=== PATIENT | female | born 1965 | race Caucasian/White ===

== ENCOUNTER 2022-06-04 12:33 | Observation (INO) | payer BC, SELFPAY ==
[2022-06-04] VITALS (29 sets, daily range): BP systolic 102–146; BP diastolic 61–75; PULSE 82–176; RESP 15–25; TEMP 36.2–36.7; O2SAT 95–100; BMI 37.4
--- NOTE | ~2022-06-04 | XR_ITS ---
EXAMINATION: XR ribs LT 2V w CXR 2V DATE: 06/04/2022 14:42 INDICATION: Left rib pain post fall TECHNIQUE: PA and lateral views of the chest and 3 views of the left ribs were obtained. COMPARISON: CT abdomen dated 06/04/2022 FINDINGS: Mild displacement of an age-indeterminate anterior left third rib fracture. No other rib fractures id entified. No focal airspace opacities, pulmonary edema, pleural effusion or pneumothorax. Heart size is normal. Mild lower thoracic levocurvature with mild spondylosis. Excreted contrast in the left kwadwo al collecting system and proximal left ureter from the earlier contrast-enhanced CT. IMPRESSION: 1. Age-indeterminate mildly displaced anterior left third rib fracture. Reviewed, dictated and finalized at location A.
--- NOTE | ~2022-06-04 | US_ITS ---
EXAMINATION: US carotid duplex BI DATE: 06/05/2022 09:19 INDICATION: Syncope. TECHNIQUE: Grayscale, color Doppler, and pulsed Doppler images of the cervical carotid arteries were obtained. The degree of vessel stenosis is placed in one of the following categories: normal, <50%, 5 0-69%, >=70% but less than near-occlusion, near-occlusion, or total occlusion. Note that percent sten osis relative to normal distal artery lumen diameter is indirectly measured from velocity measurement s as described by Alexsander, et al. Radiology 2003; 229:340-346. COMPARISON: None. FINDINGS: RIGHT: The right common carotid artery (CCA) peak systolic velocity (PSV) is 122 cm/s. The right internal ca rotid artery (ICA) PSV is 85 cm/s. The right ICA end-diastolic velocity (EDV) is 37 cm/s. The right I CA/CCA PSV ratio is 0.7. Grayscale and color Doppler images yield an estimate of <50% diameter reduct ion from plaque in the ICA. There is antegrade flow in the right vertebral artery. LEFT: The left CCA PSV is 97 cm/s. The left ICA PSV is 75 cm/s. The left ICA EDV is 31 cm/s. The left ICA/C CA PSV ratio is 0.8. Grayscale and color Doppler images yield an estimate of <50% diameter reduction from plaque in the ICA. There is antegrade flow in the left vertebral artery. IMPRESSION: 1. <50% stenosis in the right internal carotid artery. 2. <50% stenosis in the left internal carotid artery. Reviewed, dictated and finalized at location A.
--- NOTE | ~2022-06-04 | CT_ITS ---
EXAMINATION: CT abdomen pelvis w con INDICATION: Diffuse lower abdominal pain TECHNIQUE: Computed tomographic images of the abdomen and pelvis were obtained after the administrati on of 100 cc of Omnipaque 350 intravenous contrast. The dose-length product (DLP) was 1104.46 mGy-cm. Automated exposure control and iterative reconstruction technique were employed. COMPARISON: None available FINDINGS: Minimal dependent atelectasis is present in the lung bases. The heart size is normal. Stone s are present in the nondistended gallbladder. The liver, spleen, pancreas, and adrenal glands are no rmal. There is mildly decreased enhancement of the right kidney compared to the left. There is also m ild urothelial thickening and enhancement of the right ureter. Colonic diverticulosis is present with out evidence of diverticulitis. No pathologically enlarged abdominal or pelvic lymph nodes are identi fied. No free intraperitoneal gas or evidence of bowel obstruction. There is a fat-containing umbilic al hernia. IMPRESSION: 1. Mildly decreased enhancement of the right kidney and mild urothelial thickening and enhancement of the right ureter suggestive of urinary tract infection possible mild right pyelonephritis. 2. Cholelithiasis without evidence of cholecystitis. Reviewed, dictated and finalized at location L. IMPRESSION: 1. Mildly decreased enhancement of the right kidney and mild urothelial thicken ing and enhancement of the right ureter suggestive of urinary tract infection p ossible mild right pyelonephritis. 2. Cholelithiasis without evidence of cholecystitis.
--- NOTE | ~2022-06-04 | CT_ITS ---
EXAMINATION: CT brain wo con DATE: 06/04/2022 14:26 INDICATION: Syncope. TECHNIQUE: Computed tomography (CT) of the head was performed without intravenous contrast. The mA wa s adjusted according to patient size. Iterative reconstruction technique was employed. The dose-lengt h product was 605.33 mGy-cm. COMPARISON: None FINDINGS: There is no intracranial hemorrhage, acute infarction, or abnormal intracranial mass lesion . The ventricles are normal in size. The orbits are normal. There is mild mucosal thickening in the p aranasal sinuses. The mastoid air cells are normal. IMPRESSION: 1. Normal brain. Reviewed, dictated and finalized at location A. IMPRESSION: 1. Normal brain.
[2022-06-04 13:04] LABS: Basophils Percent Auto 0.2 % (0.2-1.2); Eosinophils Absolute Auto 0.1 K/mm3 (0-0.3); Eosinophils Percent Auto 0.4 % (0-4.4); Hematocrit 37.6 % (37.0-47.0); Hemoglobin 12.4 g/dL (12.0-15.0); Immature Granulocyte Absolute 0.17 K/mm3 (0.00-0.031); Immature Granulocyte Percent A 0.9 % (0-0.5); Lymphocytes Absolute Auto 1.16 K/mm3 (0.9-3.2); Lymphocytes Percent Auto 6.5 % (18.3-44.2); Mean Corpuscular Hemoglobin 30.2 pg (26-34); Mean Corpuscular Volume 91.5 fl (80-100); Mean Platelet Volume 11.1 fl (7.4-10.4); Monocytes Absolute Auto 1.4 K/mm3 (0.1-0.6); Monocytes Percent Auto 7.9 % (2.6-8.5); Neutrophils Absolute Auto 15.1 K/mm3 (1.3-6.7); Neutrophils Percent Auto 84.1 % (45.5-73.1); Platelet Count Result 169 k/mm3 (150-375); Red Blood Count 4.11 M/mm3 (4.2-5.4); Red Cell Distribution Width 14.6 % (11.5-14.5); White Blood Count 17.9 K/mm3 (4.5-10.0)
[2022-06-04 13:14] LABS: Alanine Aminotransferase 27 U/L (6-35); Albumin Level 4.1 g/dL (3.5-5.1); Alkaline Phosphatase 40 U/L (38-126); Anion Gap 8 mmol/L (8-16); Aspartate Amino Transferase 29 U/L (14-36); Bilirubin,Total 1.4 mg/dL (0.2-1.3); Blood Urea Nitrogen 18 mg/dL (7-17); Carbon Dioxide 27 mmol/L (22-30); Chloride 99 mmol/L (98-107); Estimated CRCL calculation 61 ml/min; Estimated Glomerular Filt Rate > 60; Glucose 104 mg/dL (65-110); Potassium 3.3 mmol/L (3.4-5.0); Sodium 134 mmol/L (137-145)
[2022-06-04 13:54] LABS: Appearance Urine Clear (Clear); Bacteria Urine None Seen /hpf; Bilirubin Urine Negative (Negative); Blood Urine 1+ (Negative); Color Urine Yellow (Yellow); Glucose Urine UA Negative (Negative); Ketones Urine Trace mg/dL (Negative); Leukocyte Esterase Ur 1+ LEU/UL (Negative); Need Manual Microscopic Reviewed; Nitrate Urine Negative (Negative); Non Pathogenic Casts 0-2; Protein Urine Negative (Negative); RBC Urine 0-2 /hpf (0-2); Specific Grav Ur 1.005 (1.001-1.035); Squamous Epithelial Cell Urine Occasional /hpf (Few); Urobilinogen Urine 0.2 mg/dL (<2.0); pH Urine 6.5 (5.0-9.0)
[2022-06-04 13:55] LABS: Add Urine Microscopic? YES
--- NOTE | 2022-06-04 13:59 | ED.FALL ---
HPI - Fall General Chief Complaint: Fall Stated Complaint: Left Rib pain Time Seen by Provider: 06/04/22 13:28 History of Present Illness HPI Narrative: Patient is a 56-year-old female here for evaluation after syncopal episode yesterday. Patient states that she has felt unwell for 2 days, with fevers, diffuse abdominal pain, urinary symptoms and fatigue. She saw her PCP yesterday who diagnosed with her a UTI, she has been taking her antibiotics but states that she has gotten worse. Yesterday she states that she felt unwell and passed out without warning, woke up on the floor with a headache. She contacted her primary care doctor who recommended ED evaluation. She denies any diarrhea, constipation. Has not taken any medicine for pain. Related Data Home Medications Medication Instructions Recorded Confirmed albuterol sulfate 90 mcg/actuation 1 puff inhalation Q4H PRN 01/11/22 06/03/22 aerosol inhaler (Ventolin HFA) cholecalciferol (vitamin D3) 50 4,000 unit PO DAILY 01/11/22 06/03/22 mcg (2,000 unit) capsule cyanocobalamin (vitamin B-12) 2,000 mcg PO DAILY 01/11/22 06/03/22 2,000 mcg tablet ferrous sulfate 142 mg (45 mg 142 mg PO ONCE 01/11/22 06/03/22 iron) tablet,extended release (Slow Fe) loratadine 10 mg tablet (Claritin) 10 mg PO DAILY 01/11/22 06/03/22 omeprazole magnesium 20 mg 20 mg PO DAILY 01/11/22 06/03/22 tablet,delayed release (Prilosec OTC) vitamin E mixed 400 unit capsule unit PO 01/11/22 06/03/22 Allergies Allergy/AdvReac Type Severity Reaction Status Date / Time cephalexin [From Keflex] AdvReac Unknown Gastrointestinal Verified 06/04/22 13:28 Upset sunflower products AdvReac Severe Loss of Uncoded 06/03/22 14:50 Consciousness Review of Systems Review of Systems: Gen.: Reports syncope. Denies fevers or chills Eyes: Denies eye pain or visual change ENT: Denies congestion Respiratory: Denies shortness of breath or cough CV: Denies chest pain or palpitations GI: Reports abdominal pain. Denies abdominal pain nausea, emesis or diarrhea : reports urinary symptoms. Musculoskeletal: Denies back pain or muscle pain Neuro: Denies numbness, tingling, weakness or focal weakness Skin: Denies rash Except as documented, all other systems reviewed and negative PMFSH Past Medical History Medical History Anemia Iron deficiency Asthma Carpal tunnel syndrome of left wrist Carpal tunnel syndrome of right wrist Endometrial cyst of ovary HTN (hypertension) Surgical History Surgical History H/O right knee surgery S/P foot surgery, left Social History Social History ) Smoking status: Never smoker Alcohol intake: current Alcohol use details: Holidays Substance use: never Living arrangements: with family Occupation/Education: other Additional occupation/education comments: House Gender identity (if verbalized by the patient): Female Exam Narrative: APPEARANCE: Well appearing, no pain in distress, well-nourished. Head: There is a hematoma palpated to the left posterior scalp. EYES: PERRLA/EOMI, conjunctivae clear NOSE: No nasal drainage EARS: External ear normal in appearance THROAT: Oropharynx is clear. Mucous membranes are moist. NECK: There is no tenderness to palpation along the midline of the C-spine. Supple. No adenopathy, no masses. RESPIRATORY: Airway patent, respirations nonlabored. Clear to auscultation bilaterally, no rales, rhonchi, wheezing. CARDIOVASCULAR: Regular rate and rhythm without murmurs, rubs, or gallops. ABDOMINAL: Mild right CVAT. RLQ abdominal tenderness. Normoactive bowel sounds. Soft, nondistended. No rebound tenderness or guarding. MUSCULOSKELETAL: There is tenderness to palpation in the left axillae along the posterior ribs. Non-pitting edema to BLE
[2022-06-04] MEDS: SODIUM CHLORIDE 0.9% IV 1,000 ML 999 ML IV CONT (14:02)
[2022-06-04] MEDS: KETOROLAC 15 MG/ML VIAL (*BKC) IV PUSH (14:03)
[2022-06-04 14:28] LABS: Lactic Acid Reflex 0.8 mmol/L (0.7-2.0)
[2022-06-04 14:45] LABS: Troponin I < 0.012 ng/mL (0.000-0.034)
[2022-06-04] MEDS: LIDOCAINE 5% PATCH 1 PATCH TRANSDERM (15:09)
--- NOTE | 2022-06-04 17:00 | PM.IMHP ---
H&P: HPI History of Present Illness Date/Time: 06/04/22 17:00 Chief Complaint: Sycope yesterday. Narrative: This is a 56-year-old female with hypertension, iron deficiency anemia, and interstitial cystitis who presented to the emergency department via private vehicle from home for evaluation of of a syncopal episode which occurred yesterday. The patient provides the following history. She has not been feeling well since Friday with subjective fever, nighttime chills, occasional hot flashes, nausea, and urinary urgency and hesitancy. She was seen at her doctor's office yesterday and was prescribed ciprofloxacin 500 mg b.i.d.. After that visit she went home and while standing in the kitchen she developed sudden dizziness, lightheadedness, nausea, and hot flashes. The next thing she knew she was waking up on the kitchen floor on her left side. She has had pain in her left flank since that time, worse with palpation, movement, and deep inspiration. She did hit her head in the fall and has a minor headache as well. For some reason she waited to come in until today to get checked out. She denies chest and pleuritic pain, palpitations, sensations of racing heart, shortness of breath, vomiting, and diarrhea. In the ED: Temperature was 99.8?, heart rate was in the 130s on arrival, her blood pressures were stable. Pertinent labs include a WBC count of 17.9, sodium 134, potassium 3.3, BUN 18, creatinine 0.90, lactic acid 0.8, troponin less than 0.012. CT of the head was unremarkable. Abdominal CT showed findings of possible mild right pyelonephritis. Imaging of the chest and left ribs showed an age-indeterminate mildly displaced anterior left 3rd rib fracture. She was given a bolus of normal saline, a dose of levofloxacin, and 15 mg ketorolac IV and she is being admitted in this setting for further treatment and evaluation. Review of Systems Review of Systems: Twelve systems were reviewed and are negative except for as per HPI. [facility] Past Medical History Medical History (Updated 06/04/22 @ 21:46 by Kayley Sagastume PA-C) Asthma Exercise induced. Hypertension Interstitial cystitis Iron deficiency anemia Surgical History Surgical History (Updated 06/04/22 @ 21:42 by Kayley Sagastume PA-C) History of ankle surgery Fused left ankle. History of partial knee replacement Right. Family History Family History Mother Arthritis Father Pacemaker Social History Social History (Updated 06/04/22 @ 21:43 by Kayley Sagastume PA-C) Social History: Surrogate medical decision maker: Michael Mishra, spouse. Code status: Full code. Smoking status: Never smoker Alcohol intake: current Alcohol use details: Rare alcohol use in moderation, mainly on the holidays. Substance use: never Other substance usage details: alcohol only for special occasions Lack of Transportation: No Lack of Food: Never True Current Housing: I Have Housing Concerned About Future Housing: No Difficulty Paying Gas/Electric Bills: No Difficulty Paying for Meds: No Currently Unemployed: No Education: Bachelor's Degree Difficulty w/ Childcare or Family Care: No Living arrangements: with family Additional living arrangements comments: Lives with spouse in [place]. Occupation/Education: other Additional occupation/education comments: House . Spiritual care concerns: No Meds Home Medications and Allergies Home Medications Medication Instructions Recorded Confirmed Type albuterol sulfate 90 mcg/actuation 1 puff inhalation PRN PRN wheezes 01/11/22 06/04/22 History aerosol inhaler (Ventolin HFA) cholecalciferol (vitamin D3) 50 4,000 unit PO DAILY 01/11/22 06/04/22 History mcg (2,000 unit) capsule cyanocobalamin (vitamin B-12) 2,000 mcg PO DAILY 01/11/22 06/04/22 History 2,000 mcg tablet ferrous sulfate 142 mg (45 mg 142 mg PO .WEEKLY 01/11/22 06/04/22 Hist
--- NOTE | 2022-06-04 20:28 | ADMGEN ---
This patient, Joy Mishra, was admitted to Medical Room 253-01. Patient/family oriented to hospital policies and general routines including ID bracelet, bed and alarms, visiting hours, pain management, procedures, bathroom and other care routines, personal items, smoking policy, room service/diet, and visiting hours. Information on how to activate the Rapid Response Team has been discussed. Patient/Family are encouraged to report perceived risks to care and to ask questions if they do not understand what they are told or what they should do.
[2022-06-04] MEDS: SODIUM CHLORIDE 0.9% IV 1,000 ML 150 ML IV CONT (21:47)
[2022-06-04] MEDS: ACETAMINOPHEN 325 MG TABLET 650 MG PO (23:04)
[2022-06-04] MEDS: SODIUM CHLORIDE 0.9% IV 2,000 ML 999 ML (23:04)
[2022-06-05] VITALS (13 sets, daily range): BP systolic 116–141; BP diastolic 61–79; PULSE 76–110; RESP 16–20; TEMP 36.1–37.2; O2SAT 96–100
[2022-06-05 05:33] LABS: Hematocrit 32.2 % (37.0-47.0); Hemoglobin 10.5 g/dL (12.0-15.0); Mean Corpuscular HGB Conc 32.6 g/dl (32-36); Mean Corpuscular Hemoglobin 30.3 pg (26-34); Mean Corpuscular Volume 93.1 fl (80-100); Mean Platelet Volume 11.5 fl (7.4-10.4); Platelet Count Result 133 k/mm3 (150-375); Red Blood Count 3.46 M/mm3 (4.2-5.4); Red Cell Distribution Width 14.7 % (11.5-14.5); White Blood Count 11.5 K/mm3 (4.5-10.0)
[2022-06-05 05:37] LABS: Anion Gap 5 mmol/L (8-16); Blood Urea Nitrogen 13 mg/dL (7-17); Calcium 7.9 mg/dL (8.4-10.2); Carbon Dioxide 25 mmol/L (22-30); Chloride 108 mmol/L (98-107); Estimated CRCL calculation 80 ml/min; Estimated Glomerular Filt Rate > 60; Glucose 91 mg/dL (65-110); Potassium 3.6 mmol/L (3.4-5.0); Sodium 138 mmol/L (137-145)
[2022-06-05] MEDS: HYDROcodone/acetaminophen (*CRX) 5-325 MG TABLET 1 TAB PO ×2 (05:41→21:39)
--- NOTE | 2022-06-05 08:00 | ECHO_ITS ---
Patient Info Name: Joy Mishra Age: 56 years : 1965 Gender: Female Ht: 61 in Wt: 198 lbs BSA: 2.01 m2 HR: 91 bpm BP: 110 / 65 mmHg Technical Quality: Good Exam Date: 06/05/2022 10:12 AM Exam Location: [facility] Patient Status: Outpatient Admit Date: 06/04/2022 Staff Ordering Physician: Kayley Sagastume PA-C Food Service Counter Clerk: Hemal Hsu RDCS, RT Attending Provider: Christina Fabian MD Referring Physician: Tanika HATCH; Exam Type: CA echo doppler color flow Study Info Indications R55 - Syncope and collapse Complete two-dimensional, color flow and Doppler transthoracic echocardiogram is performed. Strain analysis performed. Summary 1. Complete two-dimensional, color flow and Doppler transthoracic echocardiogram is performed. 2. Left ventricular chamber dimension is normal. 3. Left ventricular systolic function is normal, estimated at 60-65%. 4. The left ventricular diastolic function is grade I diastolic dysfunction. 5. Global longitudinal strain is normal at -20.9%. Left Ventricle Tissue doppler is not performed. Global longitudinal strain is normal at -20.9%. Left ventricular chamber dimension is normal. Left ventricular systolic function is normal, estimated at 60-65%. The left ventricular diastolic function is grade I diastolic dysfunction. Right Ventricle Right ventricular systolic function is normal and with normal TAPSE 2.1 cm. Right ventricular chamber dimension is normal. Left Atria Left atrial chamber dimension is normal. Right Atria Right atrial chamber dimension is normal. Aortic Valve The aortic valve is trileaflet. There is no aortic valve stenosis. There is no aortic valve regurgitation. Pulmonic Valve There is no pulmonic regurgitation. Mitral Valve There is no mitral valve stenosis. There is no mitral valve regurgitation. Tricuspid Valve There is no tricuspid valve regurgitation. Pericardium/Pleural There is no pericardial effusion. Inferior Vena Cava Normal inferior vena cava with >50% collapse upon inspiration consistent with normal right atrial pressure, 5 mmHg. Aorta The aortic root size at the sinus of Valsalva is normal. Left Ventricular Outflow Tract Name Value Normal LVOT 2D LVOT Diameter 1.9 cm LVOT Doppler LVOT Peak Gradient 7 mmHg LVOT Mean Gradient 4 mmHg LVOT VTI 25 cm LVOT VTI/AV VTI Ratio 0.9 LVOT Stroke Volume 70 ml LVOT CO 6.6 l/min LVOT CI 3.3 l/min/m2 Mitral Valve Name Value Normal MV Doppler MV Decel [place] 478 cm/s2 MV PHT 51 ms MV Area (PHT) 4.4 cm2 4.0-5.0 MV Diastolic Function
[2022-06-05] MEDS: MELOXICAM 7.5 MG TABLET 15 MG PO (09:19)
[2022-06-05] MEDS: CYANOCOBALAMIN 1,000 MCG TABLET 2000 MCG PO (09:20)
[2022-06-05] MEDS: LORATADINE 10 MG TABLET PO (09:20)
[2022-06-05] MEDS: PANTOPRAZOLE 40 MG TABLET PO (09:20)
[2022-06-05] MEDS: CHOLECALCIFEROL 1,000 UNITS TABLET 4000 UNITS PO (09:20)
[2022-06-05] MEDS: VITAMIN E 400 UNIT CAPSULE PO (10:40)
[2022-06-05] MEDS: ACETAMINOPHEN 325 MG TABLET 650 MG PO (11:46)
--- NOTE | 2022-06-05 11:58 | PM.IMPN ---
Progress Note: A&P Assessment and Plan (1) Syncope: Code(s): R55 - Syncope and collapse Status: Acute (2) Left rib fracture: Code(s): S22.32XA - Fracture of one rib, left side, initial encounter for closed fracture Status: Acute (3) Pyelonephritis of right kidney: Code(s): N12 - Tubulo-interstitial nephritis, not specified as acute or chronic Status: Acute (4) Hypertension: Code(s): I10 - Essential (primary) hypertension Status: Acute Plan ?56-year-old female with hypertension, iron deficiency anemia, and interstitial cystitis who presented to the emergency department via private vehicle from home for evaluation of of a syncopal episode. 1)Syncope: ?vaso vagal Hypotension in setting of fever/infection Feeling good PT/OT BP stable Await echo Carotid USG unremarkable 2)UTI with right Pyelonephritis: await Urine culture C/w Levofloxacin Improving leucocytosis 3)Left rib Fracture: Pain control Incentive spirometer 4)H/o Iron Deficiency Anemia: C/w Iron supplement 5)DVT ppx:Hep SQ 6)Code:Full 7)Dispo:anticipate discharge in AM if continues to improve Time Spent With Patient Time with patient: 15 - 25 minutes Subjective Date/time seen: 06/05/22 11:58 Interval history: no acute events overnight feeling better Review of Systems Review of Systems: All systems reviewed & are unremarkable except as noted in HPI and below Exam Const: General: comfortable and no acute distress HENMT: Mouth: Yes moist mucous membranes Eyes: Sclera: sclerae normal Neck: Neck: supple Resp: Effort & Inspection: normal respiratory effort Auscultation: clear to auscultation bilaterally Cardio: Rate: regular rate Rhythm: regular rhythm GI: GI Palp: Yes Soft to palpation Auscultation: normal bowel sounds Skin: General skin exam: normal color Neuro: Speech: normal speech Extrem: General: normal to inspection Psych: Mental Status: mental status grossly normal Objective Data Vital Signs Vital Signs: Vital Signs - 24 hr 06/04/22 12:36 06/04/22 14:47 06/04/22 14:48 Temperature 98.0 F Pulse Rate 94 93 95 Respiratory Rate 16 Blood Pressure 146/74 H 124/75 120/72 Pulse Oximetry 100 Oxygen Delivery Room Air 06/04/22 14:50 06/04/22 14:52 06/04/22 14:53 Temperature Pulse Rate 97 132 H 176 H Respiratory Rate 20 19 Blood Pressure 124/72 124/72 111/69 Pulse Oximetry 100 99 Oxygen Delivery 06/04/22 14:54 06/04/22 15:00 06/04/22 15:01 Temperature Pulse Rate 85 85 84 Respiratory Rate 17 22 H 19 Blood Pressure 103/61 Pulse Oximetry 100 100 100 Oxygen Delivery 06/04/22 15:15 06/04/22 15:30 06/04/22 15:45 Temperature Pulse Rate 85 87 86 Respiratory Rate 15 19 16 Blood Pressure Pulse Oximetry 100 100 100 Oxygen Delivery 06/04/22 16:00 06/04/22 16:01 06/04/22 16:02 Temperature Pulse Rate 90 90 88 Respiratory Rate 17 18 24 H Blood Pressure 102/69 Pulse Oximetry 100 100 100 Oxygen Delivery 06/04/22 16:15 06/04/22 16:28 06/04/22 16:30 Temperature Pulse Rate 90 90 86 Respiratory Rate 16 21 H 17 Blood Pressure 117/72 Pulse Oximetry 100 99 100 Oxygen Delivery 06/04/22 16:45 06/04/22 17:00 06/04/22 17:01 Temperature Pulse Rate 82 82 84 Respiratory Rate 15 17 17 Blood Pressure 105/65 Pulse Oximetry 100 99 99 Oxygen Delivery 06/04/22 17:15 06/04/22 17:30 06/04/22 17:45 Temperature Pulse Rate 90 89 90 Respiratory Rate 20 19 18 Blood Pressure 104/67 Pulse Oximetry 99 98 100 Oxygen Delivery 06/04/22 18:00 06/04/22 18:01 06/04/22 19:00 Temperature Pulse Rate 86 88 104 H Respiratory Rate 18 19 24 H Blood Pressure 109/62 Pulse Oximetry 99 99 99 Oxygen Delivery 06/04/22 19:01 06/04/22 21:03 06/04/22 21:51 Temperature 97.2 F L Pulse Rate 105 H 96 Respiratory Rate 25 H 20 Blood Pressure 109/70 113/61 Pulse Oximetry 95 Oxy
[2022-06-05] MEDS: HEPARIN SODIUM 5,000 UNITS/ML VIAL 5000 UNITS SUB-Q (21:39)
[2022-06-06] VITALS: PULSE 83
[2022-06-06 04:00] VITALS: PULSE 83
[2022-06-06 05:22] LABS: Basophils Percent Auto 0.4 % (0.2-1.2); Eosinophils Absolute Auto 0.2 K/mm3 (0-0.3); Eosinophils Percent Auto 3.3 % (0-4.4); Hematocrit 34.1 % (37.0-47.0); Hemoglobin 11.1 g/dL (12.0-15.0); Immature Granulocyte Absolute 0.03 K/mm3 (0.00-0.031); Immature Granulocyte Percent A 0.4 % (0-0.5); Lymphocytes Absolute Auto 0.83 K/mm3 (0.9-3.2); Lymphocytes Percent Auto 11.3 % (18.3-44.2); Mean Corpuscular HGB Conc 32.6 g/dl (32-36); Mean Corpuscular Hemoglobin 30.2 pg (26-34); Mean Corpuscular Volume 92.9 fl (80-100); Mean Platelet Volume 11.2 fl (7.4-10.4); Monocytes Absolute Auto 0.8 K/mm3 (0.1-0.6); Monocytes Percent Auto 11.4 % (2.6-8.5); Neutrophils Absolute Auto 5.4 K/mm3 (1.3-6.7); Neutrophils Percent Auto 73.2 % (45.5-73.1); Platelet Count Result 158 k/mm3 (150-375); Red Blood Count 3.67 M/mm3 (4.2-5.4); Red Cell Distribution Width 14.8 % (11.5-14.5); White Blood Count 7.4 K/mm3 (4.5-10.0)
[2022-06-06 05:34] LABS: Anion Gap 7 mmol/L (8-16); Blood Urea Nitrogen 11 mg/dL (7-17); Calcium 8.4 mg/dL (8.4-10.2); Carbon Dioxide 24 mmol/L (22-30); Chloride 107 mmol/L (98-107); Estimated CRCL calculation 92 ml/min; Estimated Glomerular Filt Rate > 60; Glucose 111 mg/dL (65-110); Potassium 3.6 mmol/L (3.4-5.0); Sodium 138 mmol/L (137-145)
[2022-06-06 05:47] VITALS: BP 142/68; PULSE 83; RESP 16; TEMP 36.6; O2SAT 97
[2022-06-06 08:00] VITALS: PULSE 88
[2022-06-06] MEDS: CYANOCOBALAMIN 1,000 MCG TABLET 2000 MCG PO (08:47)
[2022-06-06] MEDS: LORATADINE 10 MG TABLET PO (08:47)
[2022-06-06] MEDS: PANTOPRAZOLE 40 MG TABLET PO (08:47)
[2022-06-06] MEDS: ACETAMINOPHEN 325 MG TABLET 650 MG PO (08:48)
[2022-06-06] MEDS: VITAMIN E 400 UNIT CAPSULE PO (08:48)
[2022-06-06] MEDS: MELOXICAM 7.5 MG TABLET 15 MG PO (08:48)
[2022-06-06] MEDS: CHOLECALCIFEROL 1,000 UNITS TABLET 4000 UNITS PO (08:48)
--- NOTE | 2022-06-06 09:42 | PM.DS ---
DS: Admitting Diagnosis Discharge Date 06/06/22 Admitting Diagnosis Syncope Left Rib Fracture Right Pyelonephritis DS: Discharge Diagnosis Discharge Diagnosis (1) Syncope: Code(s): R55 - Syncope and collapse Status: Acute (2) Left rib fracture: Code(s): S22.32XA - Fracture of one rib, left side, initial encounter for closed fracture Status: Acute (3) Pyelonephritis of right kidney: Code(s): N12 - Tubulo-interstitial nephritis, not specified as acute or chronic Status: Acute DS: Summary Hospital Course Reason for hospitalization: Syncope Left Rib Fracture Right Pyelonephritis Hospital Course: 56-year-old female with hypertension, iron deficiency anemia, and interstitial cystitis who presented to the emergency department via private vehicle from home for evaluation of of a syncopal episode. Was found to have left rib fracture which was treated supportively with pain control, incentive spirometer. Syncope work including echo and carotid USG were essentially unremarkable. Work up s/o UTI with right pyelonephritis. Was treated with levofloxacin, although urine culture was essentially unremarkable. Discharged on oral levofloxacin to complete the course of abx. Status at Discharge Functional status at discharge: independent ambulation Overall status at discharge: patient is back to baseline Time Spent with Patient Time attestation: Total time spent providing and/or coordinating discharge services: Time spent: Greater than 30 minutes Exam Const: General: comfortable and no acute distress HENMT: Mouth: Yes moist mucous membranes Eyes: Sclera: sclerae normal Neck: Neck: supple Resp: Effort & Inspection: normal respiratory effort Auscultation: clear to auscultation bilaterally Cardio: Rate: regular rate Rhythm: regular rhythm GI: GI Palp: Yes Soft to palpation Auscultation: normal bowel sounds Skin: General skin exam: normal color Neuro: Speech: normal speech Extrem: General: normal to inspection Psych: Mental Status: mental status grossly normal DS: Data Data Completed and Pending Labs on day of discharge: Labs from last 24 hours 06/06/22 04:50 WBC 7.4 RBC 3.67 L Hgb 11.1 L Hct 34.1 L MCV 92.9 MCH 30.2 MCHC 32.6 RDW 14.8 H Plt Count 158 MPV 11.2 H Immature Gran % (Auto) 0.4 Neut % (Auto) 73.2 H Lymph % (Auto) 11.3 L [place] % (Auto) 11.4 H Eos % (Auto) 3.3 Baso % (Auto) 0.4 Lymph # (Auto) 0.83 L [place] # (Auto) 0.8 H Eos # (Auto) 0.2 Baso # (Auto) 0.0 Abs Immat Gran (auto) 0.03 Absolute Neuts (auto) 5.4 Absolute Nucleated RBC 0.0 Nucleated RBC % 0.0 Sodium 138 Potassium 3.6 Chloride 107 Carbon Dioxide 24 Anion Gap 7 L BUN 11 Creatinine 0.60 L Estim Creat Clear Calc 92 Estimated GFR > 60 Glucose 111 H Calcium 8.4 Preliminary micro results at discharge 06/04/22 14:04 Blood Culture - Preliminary Blood 06/04/22 14:09 Blood Culture - Preliminary Blood Discharge Plan Discharge Attending physician on discharge: Reyna Rodriguez Consulting providers: Lisseth Donnelly Discharging Clinician: Reyna Rodriguez Anticipated Discharge Date/Time: 06/06/22 09:37 Patient Disposition: Home, Self-Care Activity: as tolerated Diet: as tolerated and regular Patient Instructions: Antibiotic Form Stand Alone Forms: General Discharge Information Follow-up/Referrals: Alida Gaines PA-C [Primary Care Provider] - 2 Weeks Discharge Medications: New hydrocodone-acetaminophen 5-325 mg Tablet 1 tablet PO Q6H PRN (Reason: Pain Rated 4-6) Qty: 5 0RF lidocaine [Lidoderm] 5 % adhesive patch,medicated 1 patch topical DAILY Qty: 15 0RF Rx Instructions: leave on most painful area for up to 12 hrs Continued albuterol sulfate [Ventolin HFA] 90 mcg/actuation HFA aerosol inhaler 1 puff inhalation PRN PRN (Reason: wheezes) loratadine [Claritin] 10 mg tablet 10 mg
[2022-06-06 10:06] VITALS: O2SAT 99
--- NOTE | 2022-06-06 10:55 | PCOTNOTE ---
Cancelation of OT orders as pt. independent with PT evaluation. Confirmed appropriate to cancel orders with hospitalist.
--- NOTE | 2022-06-06 11:10 | PC.NURSE ---
On 06/06/22, the student, [Faisal Crane], provided care and completed [facility] documentation on this patient. I have reviewed the student's documentation and agree with the findings.
== END 2022-06-06 11:15 | disposition home or self-care (01) ==
LOC: ANHED 16:10 → ANH2MED 19:56
PROVIDERS: Emergency Medicine; Physician Assistant; Admitting Provider Family Medicine; Emergency Provider Physician Assistant; PCP Physician Assistant Medical; Visit Provider Internal Medicine
DX: R55 Syncope and collapse (principal); S22.32XA Fracture of one rib, left side, initial encounter for closed fracture; E87.6 Hypokalemia; N12 Tubulo-interstitial nephritis, not specified as acute or chronic; I65.23 Occlusion and stenosis of bilateral carotid arteries; I11.9 Hypertensive heart disease without heart failure; R50.9 Fever, unspecified; N30.10 Interstitial cystitis (chronic) without hematuria; K80.20 Calculus of gallbladder without cholecystitis without obstruction; R51.9 Headache, unspecified; R10.30 Lower abdominal pain, unspecified; D50.9 Iron deficiency anemia, unspecified; J45.909 Unspecified asthma, uncomplicated; F10.90 Alcohol use, unspecified, uncomplicated; D72.829 Elevated white blood cell count, unspecified; Z79.51 Long term (current) use of inhaled steroids; Z79.899 Other long term (current) drug therapy
CPT/HCPCS: 36415; 70450; 71046; 71100; 74177; 80048; 80053; 81001; 83605; 83735; 84484; 85025; 85027; 87040; 87086; 93306; 93880; 96361; 96365; 96366; 96372; 96375; 97161; 99285; A9270; G0378; J1644; J1885; J1956; J7030; Q9967

== ENCOUNTER 2022-09-04 13:50 | Outpatient (CLI) | payer BC, SELFPAY ==
--- NOTE | 2022-09-04 14:00 | ECG_ITS ---
Measurements Intervals [place] Rate: 74 P: 46 NH: 168 QRS: -43 QRSD: 94 T: 18 QT: 375 QTc: 417 Interpretive Statements SINUS RHYTHM POOR R WAVE PROGRESSION, ANTERIOR LEADS MINIMAL Q WAVES- INFERIOR LEADS BASELINE ARTIFACT- I, II, III, AVR, AVL, AVF BORDERLINE ECG NO PREVIOUS ECG AVAILABLE FOR COMPARISON Electronically Signed On 09-04-2022 16:19:06 CDT by Nima Bull D.O.
[2022-09-04 14:39] LABS: Appearance Urine Clear (Clear); Bilirubin Urine Negative (Negative); Blood Urine Negative (Negative); Color Urine Yellow (Yellow); Glucose Urine UA Negative (Negative); Ketones Urine Negative (Negative); Leukocyte Esterase Ur Negative LEU/UL (Negative); Nitrate Urine Negative (Negative); Protein Urine Negative (Negative); Specific Grav Ur 1.003 (1.001-1.035); Urobilinogen Urine 0.2 mg/dL (<2.0); pH Urine 6.5 (5.0-9.0)
[2022-09-04 14:40] LABS: Hematocrit 43.5 % (37.0-47.0); Hemoglobin 14.1 g/dL (12.0-15.0)
[2022-09-04 14:43] LABS: Anion Gap 7 mmol/L (8-16); Blood Urea Nitrogen 12 mg/dL (7-17); Calcium 9.6 mg/dL (8.4-10.2); Carbon Dioxide 31 mmol/L (22-30); Chloride 101 mmol/L (98-107); Estimated Glomerular Filt Rate > 60; Glucose 91 mg/dL (65-110); Potassium 3.8 mmol/L (3.4-5.0); Sodium 139 mmol/L (137-145)
[2022-09-04 14:47] LABS: Add Urine Microscopic? NO
[2022-09-04 14:52] LABS: Prothrombin Time 13.1 Seconds (11.1-14.7)
[2022-09-04 14:53] LABS: Partial Thromboplastin Time 27.1 SECONDS (22.3-36.8)
== END 2022-09-04 13:51 | disposition home or self-care (01) ==
LOC: ANHSURGERY 13:55
PROVIDERS: Anesthesiology; PCP Nurse Practitioner Family; Visit Provider Urology
DX: N20.0 Calculus of kidney (principal); D64.9 Anemia, unspecified; I10 Essential (primary) hypertension; Z79.899 Other long term (current) drug therapy; Z01.818 Encounter for other preprocedural examination
CPT/HCPCS: 36415; 80048; 81003; 85014; 85018; 85610; 85730; 93005

== ENCOUNTER 2022-09-06 03:59 | Day surgery (SDC) | payer BC, SELFPAY ==
[2022-09-04 09:46] VITALS: BMI 37.0
--- NOTE | 2022-09-04 09:55 | PC.NURSE ---
Report to the Outpatient Waiting Room, entrance under the green pavilion located off [facility], at time 8:30 on date 09/06/22. Planned Procedure Time: 10:30. Time changes happen often and if your time is changed the preop area will call you the afternoon before. - You and your visitor will be asked to self-screen and do not enter if you have any COVID symptoms. - A mask is optional within the hospital at this time. Patients may have clear liquids (water, carbonated beverages, clear teas, apple juice) until 3 hours prior to surgery (7:30) with a maximum of 20 ounces. - No food from midnight until time of surgery Take the following medications with a SIP of water the morning of surgery: INHALER IF NEEDED DO NOT STOP ANY OF YOUR OTHER PRESCRIPTION MEDICATIONS PRIOR TO SURGERY ?EXCEPT THE FOLLOWING Medications to discontinue per physician: MELOXICAM, VITAMINS/SUPPLEMENTS Date to take last dose: NO MORE UNTIL AFTER SURGERY Please no make-up, nail belarusian, hairspray, perfume, deodorant, or body powder the day of surgery. No jewelry (including any body piercings) or valuables the day of surgery, leave them at home. Please take a shower or bath the night before, or the morning of, surgery with an antibacterial soap. Wear comfortable, loose fitting clothing. - Jewelry must be removed prior to entering the operating room. Rings and piercings that are not removed may be cut off. - The hospital will not accept responsibility for valuables. - Please leave all valuables, including medications, at home the day of surgery. If you are going home after surgery, a licensed industrial tractor driver must drive you home. - NO public transportation without another adult if you receive anesthesia. - We recommend that an adult stay with you for 24 hours following discharge. - We also recommend that you do not drive, make important decision, drink alcoholic beverages, or take any drugs that were not prescribed by your health care provider for at least 24 hours after your discharge time. Follow any additional instructions given to you from your surgeon. If you or anyone in your household have experienced Covid symptoms in the past week, please notify your surgeon or the nurse liaison at the phone number below for possible testing. Telephone instructions given to PT - ANA OSULLIVAN and asked if any additional questions and then verbalized understanding. Patient advised to call surgeon office or pre surgery nurse liaison [phone] if any additional questions.
--- NOTE | 2022-09-05 09:19 | WPDANESEPPF ---
Anes - Initial Pre Proc Eval Procedure: Operation Date: 09/06/22 10:30 Proposed Procedures p Right Renal Extracorporeal Shock Wave Lithotripsy - Anurag Bates MD Date/Time: 09/05/22 09:19 Surgeon: Anurag Bates MD Pre Op Diagnosis: right renal stone Patient Data Age: 57 Gender: F Height: 1.55 m Weight: 88.9 kg Allergies Allergy/AdvReac Type Severity Reaction Status Date / Time cephalexin [From Keflex] AdvReac Unknown Gastrointestinal Verified 09/06/22 09:31 Upset sunflower products AdvReac Severe Loss of Uncoded 09/06/22 09:31 Consciousness Home Medications Medication Instructions Recorded Confirmed Type albuterol sulfate 90 mcg/actuation 1 puff inhalation PRN PRN wheezes 01/11/22 09/04/22 History aerosol inhaler (Ventolin HFA) cholecalciferol (vitamin D3) 50 4,000 unit PO DAILY 01/11/22 09/04/22 History mcg (2,000 unit) capsule cyanocobalamin (vitamin B-12) 2,000 mcg PO DAILY 01/11/22 09/04/22 History 2,000 mcg tablet ferrous sulfate 142 mg (45 mg 142 mg PO .WEEKLY 01/11/22 09/04/22 History iron) tablet,extended release (Slow Fe) loratadine 10 mg tablet (Claritin) 10 mg PO DAILY 01/11/22 09/04/22 History omeprazole magnesium 20 mg 20 mg PO DAILY 01/11/22 09/04/22 History tablet,delayed release (Prilosec OTC) vitamin E mixed 400 unit capsule 400 unit PO DAILY 01/11/22 09/04/22 History lisinopril 10 0.5 tablet PO DAILY 06/04/22 09/04/22 History mg-hydrochlorothiazide 12.5 mg tablet meloxicam 15 mg tablet 15 mg PO DAILY #90 tabs 08/28/22 09/04/22 Rx amitriptyline 10 mg tablet 10 mg PO HS 09/04/22 09/04/22 History Patient hx anesthesia problems: none Family hx anesthesia problems: none Results Review: All pre-operative results and documents have been reviewed as part of the pre-operative evaluation. [facility] Past Medical History Medical History (Updated 09/05/22 @ 09:19 by Uriel Silverio DO) Asthma Exercise induced. Endometriosis GERD (gastroesophageal reflux disease) Hypertension Interstitial cystitis Iron deficiency anemia Surgical History Surgical History History of ankle surgery Fused left ankle. History of partial knee replacement Right. Family History Family History Mother Arthritis Father Pacemaker Social History Social History Social History: Surrogate medical decision maker: Michael Mishra, spouse. Code status: Full code. Smoking status: Never smoker Alcohol intake: current Alcohol use details: VERY RARE Substance use: never Substance use type: does not use Other substance usage details: alcohol only for special occasions Lack of Transportation: No Lack of Food: Never True Current Housing: I Have Housing Concerned About Future Housing: No Difficulty Paying Gas/Electric Bills: No Difficulty Paying for Meds: No Currently Unemployed: No Education: Bachelor's Degree Difficulty w/ Childcare or Family Care: No Living arrangements: with family Additional living arrangements comments: Lives with spouse in [place]. Occupation/Education: other Additional occupation/education comments: House . Spiritual care concerns: No Anes - Eval Final PreProcedure Day of Procedure 09/05/22 09:19 Patient weight: obese Heart: regular rate and rhythm Lungs: clear to auscultation Airway: Mallampati scale class II Neurological: alert and oriented Last oral intake: >/= 8 hours ASA classification: III Emergent: no Anesthetic plan: proceed Anesthesia type and monitoring: general LMA and standard monitoring Results Review: All pre-operative results and documents have been reviewed as part of the pre-operative evaluation. Informed Consent: The patient's anesthetic plan and its attendant risks and benef
--- NOTE | ~2022-09-06 | CT_ITS ---
EXAMINATION: CT abdomen pelvis wo con DATE: 09/06/2022 09:57 INDICATION: Right kidney stone TECHNIQUE: Computed tomography (CT) of the abdomen and pelvis was performed without intravenous contr ast. Automated exposure control and iterative reconstruction technique were employed. Exam dose: 425 .69 mGy-cm total exam DLP. COMPARISON: 09/06/2022 KUB 06/04/2022 CT abdomen pelvis FINDINGS: The lung bases are clear. Normal heart size. No pericardial or pleural effusion. Very small sliding hiatal hernia. Multiple stones are noted in the dependent aspect of the gallbladder. No gallbladder wall thickening or pericholecystic fluid or fat stranding. No hepatic, pancreatic, splenic space-occupying mass lesion or splenomegaly. No bile duct or pancreat ic duct dilatation. Normal morphology of the adrenal glands. No renal mass lesion or urinary tract calculus or hydroureteronephrosis. The urinary bladder, uterus and adnexal areas are unremarkable. Normal caliber of the abdominal aorta. No intraperitoneal or retroperitoneal or pelvic mass lesion or adenopathy or ascites. Numerous diverticula of the sigmoid and descending colon; no CT evidence of diverticulitis. Grade 1 anterolisthesis at L5-S1 due to prominent degenerative change at the apophyseal joints. No suspicious osteolytic or osteoblastic lesions are noted. Small fat-containing umbilical hernia. IMPRESSION: No urinary tract calculi or hydroureteronephrosis Diverticulosis of the colon; no CT evidence of diverticulitis Cholelithiasis Reviewed, dictated and finalized at [facility]. Reviewed, dictated and finalized at [facility].
--- NOTE | ~2022-09-06 | XR_ITS ---
Supine and upright views of the abdomen Clinical history: Lithotripsy Findings: Bowel gas pattern is nonspecific. No evidence for obstruction or free air. No abnormal mass lesion or calcification is seen. Osseous structures are intact. Impression: No significant abnormality is seen. Reviewed, dictated and finalized at [facility] [place]. Impression: No significant abnormality is seen.
--- NOTE | 2022-09-06 06:48 | WPDHPUPDATE1 ---
History and Physical Update Update Date/Time: 09/06/22 06:48 History and Physical has been reviewed, including an updated exam of the patient. There are NO changes in the patient's condition. Risks, benefits, and alternatives have been discussed and questions answered. Patient agrees to proceed with procedure.
[2022-09-06] MEDS: LACTATED RINGERS 1,000 ML 30 ML IV CONT (09:28)
[2022-09-06 09:36] VITALS: BP 147/86; PULSE 82; RESP 16; TEMP 36.8; O2SAT 100
--- NOTE | 2022-09-06 10:56 | SUR.PREOP ---
1020- DR. IGNACIO DID TWO KUB ON PT. NO STONE NOTED ON RIGHT SIDE. DR. IGNACIO AT BEDSIDE TO REVIEW WITH PT. DR. IGNACIO STATED WE CAN DISCHARGE HOME. ALL QUESTIONS ANSWERED. PIV DC'ED. PT UP TO GET DRESSED. ALL DISCHARGE INSTRUCTIONS GIVEN TO PT.
== END 2022-09-06 10:40 | disposition home or self-care (01) ==
PROVIDERS: PCP Nurse Practitioner Family; Visit Provider Urology
PROC: (CPT 50590; principal; 2022-09-06 10:30)
DX: N20.0 Calculus of kidney (principal); Z53.8 Procedure and treatment not carried out for other reasons
CPT/HCPCS: 36415; 74018; 74176; 80048; 81003; 85014; 85018; 85610; 85730; 93005; 99212; G0463; J7120

== ENCOUNTER 2024-05-27 00:53 | Day surgery (SDC) | payer BC, SELFPAY ==
[2024-05-24 10:45] VITALS: BMI 34.9
[2024-05-24 10:58] VITALS: BMI 34.9
--- OUTSIDE RECORDS SUMMARY | 2024-05-27 00:56 | XMS_ITS | Clinical Summary ---
Author Organization [facility] Address [address] [place] [address] Care Team Providers Care Voice Teacher Name Role Phone Uri Coello MD Primary Care Provider [phone] Kwame Woodall MD Unavailable [phone] Allergies Active Allergy Reactions Criticality Noted Date Comments Cephalexin Other (See comments) Low 11/10/2020 Severe abdominal pain Dingle Oil Angioedema High 02/11/2019 Medications VENTOLIN HFA 90 mcg/actuation inhaler Inhale 2 puffs as needed 5 8 Active ferrous gluconate 236 mg (27 mg iron) tablet Take by mouth every morning Active lisinopril-hydroCH LOROthiazide (PRINZIDE,ZESTORET IC) 10-12.5 mg per tabletIndications: hypertension Take by mouth every morning 1/2 tablet only 1 8 Active cholecalciferol (VITAMIN D-3) 2,000 unit tablet Take by mouth every morning Last dose 06/14/2020 Active loratadine (CLARITIN) 10 mg tablet Take 1 tablet (10 mg total) by mouth every morning Active mineral oil-chondrus oral emulsion 2.5 mL/5 mLIndications:cons tipation Take 5 mL by mouth every morning Active amitriptyline (ELAVIL) 25 mg tablet Take 1 tablet (25 mg total) by mouth nightly 4 Active ketotifen (ZADITOR) 0.025 % ophthalmic solutionIndication s:Allergic Conjunctivitis Administer 1 drop into both eyes every morning Active ergocalciferol (VITAMIN D) 50,000 unit capsule TAKE 1 CAP 2 X A WEEK FOR 8 WEEKS THEN FOLLOW UP WITH YOUR PCP. 16 capsule 4 Active oxyCODONE (ROXICODONE) 5 mg immediate release tabletIndications: Pain Take 1 tablet (5 mg total) by mouth every 4 (four) hours as needed for pain (Breakthrough Pain) 30 tablet 4 Active pregabalin (LYRICA) 75 mg capsuleIndications :Postoperative Acute Pain Take 1 capsule (75 mg total) by mouth 2 (two) times a day for 14 days 28 capsule 4 Active traMADoL (ULTRAM) 50 mg tablet Take 1 tablet (50 mg total) by mouth every 8 (eight) hours as needed for pain 42 tablet 4 Active acetaminophen (TYLENOL) 500 mg tabletIndications: Pain Take 2 tablets (1,000 mg total) by mouth every 8 (eight) hours 90 tablet 4 Active aspirin 81 mg enteric coated tabletIndications: prevention of thrombosis Take 1 tablet (81 mg total) by mouth 2 (two) times a day 60 tablet 4 Active meloxicam (MOBIC) 15 mg tabletIndications: Postoperative pain Take 1 tablet (15 mg total) by mouth daily 30 tablet [address] (PROTONIX) 20 mg EC tabletIndications: Mucositis Prophylaxis Take 1 tablet (20 mg total) by mouth daily FOR GI PROTECTION WHILE TAKING MELOXICAM 30 tablet 4 Active senna-docusate (PERICOLACE) 8.6-50 mg Take 2 tablets by mouth 2 (two) times a day 80 tablet 1 4 Active triamcinolone (KENALOG) 0.1 % cream Apply topically 2 (two) times a day 30 g 4 Active Active Problems Problem Noted Date Diagnosed Date Primary localized osteoarthritis of left knee Polyarthralgia 11/09/2020 Overview (07/11/2021): 11/2020 labs: ESR 6, CRP 2.1, DsDNA 572 not by crithidia, MIKHAIL >150 @ 1:160 (nuclear speckled), Ro60 110, SSB equiv, RNA Roberto Carlos III equiv, PS/PT 35, C3 140, C4 31 11/2020 Lumbar spine XR: Mild curvature of the spine, mild degenerative changes in the SI joints, grade 1 retrolisthesis of L5 and S1, mild multilevel DDD worse at L4-5, L5-S1 facet arthropathy with sclerosis 06/2021 labs: AVISE MIKHAIL 140 by jamilah only, dsDNA 553 no by crithidia, Ro60 103, SSB quiv, anti-histone >3.5 (strong +), anti-PSPT IgG 42 Assessment & Plan (06/28/2021 5:42 PM CDT): Continues to have dry eye symptoms but attributes this to dysfunctional Meibomian glands. Uses artificial tears with benefit. Continues to take meloxicam and turmeric daily and recently started omeprazole due to GI upset from meloxicam. Lateral hip pain resolved with ITB and stretches. Still with foot pain and some left hand discomfort but no inflammatory sounding joint pain with history of surgical fixation of the left ankle. Denies any CTD symptoms. There is now slight synovitis of the hands on exam, R>L. Will check routine labs as well as autoimmune panel again. Offered to obtain a right hand ultrasound for further evaluation of the synovitis appreciated on exam but she declined at this time and will follow-up if she starts to have increasing joint pain/stiffness. Will call her with results. Return as needed. Seen with Dr. Woodall. Assessment & Plan (11/23/2020 8:47 PM CDT): Ms. Mishra is a 55yo female with PMH of exercise induced asthma, IC, endometriosis, allergic rhinitis and OA who presents with CC of polyarthralgia and a recent +MIKHAIL and SSA labs. Joints affected are lateral hips, knees, calves and occasionally ankles. Pain present in the AM with improvement after about 5 minutes but worsens with prolonged activity. No AM joint stiffness/swelling. Additional symptoms include cyanosis of fingers in the cold, dysphagia and hx of plantar fasciitis. FH significant for mother with RA/Sjogrens and maternal GM with RA. Radiographic imaging of the lumbar spine demonstrated mild degenerative changes to the SI joints as well as a grade 1 retrolisthesis L5 on S1 and multilevel DDD. Still awaiting results of the AVISE panel for review of her recent +MIKHAIL/SSA antibodies. Discussed potential for Sjogren's with her dry eye symptoms (although this could be secondary to Meibomian gland dysfunction) and previous SSA antibodies and reviewed the recommended conservative treatment if serologies remain positive. There is still no synovitis on exam and the hip pain she has is likely due to ITband irritation. She was encouraged to perform the ITband stretches, given to her at last visit, daily to help with symptoms. A referral to PT was provided today for additional treatment. Also discussed use of Tylenol Arthritis 1300mg BID as well as Turmeric 1500mg daily and topical voltaren gel for joint discomfort. Will call the patient with results of the AVISE panel once reviewed, however at this time symptoms and physical exam findings are not suggestive of an inflammatory arthritis. She is welcome to return if symptoms worsen or she develops new concerning symptoms. Seen with Dr. Woodall. Assessment & Plan (11/09/2020 8:41 PM CDT): Ms. Mishra is a 55yo female with PMH of exercise induced asthma, IC, endometriosis, allergic rhinitis and OA who presents with CC of polyarthralgia and a recent +MIKHAIL and SSA labs. Joints affected are lateral hips, knees, calves and occasionally ankles. Pain present in the AM with improvement after about 5 minutes but worsens with prolonged activity. No AM joint stiffness/swelling. Additional symptoms include cyanosis of fingers in the cold, dysphagia and hx of plantar fasciitis. FH significant for mother with RA/Sjogrens and maternal GM with RA. Questionable fullness of the left wrist. Ttp of distal sacrum without SI joint tenderness. No pain with IR/ER of hips. Ttp along lateral joinr spaces of knees. Low suspicion for an inflammatory arthritis or CTD given lack of synovitis and inflammatory sounding joint pain or sicca symptoms. Ddx includes trochanteric pain syndrome vs bursitis vs mechanical pain vs OA. Will perform appropriate radiographs and serologies to assess the etiology of symptoms. Return in [address] Woodall. HTN (hypertension) 06/20/2020 Primary osteoarthritis of right knee 06/06/2020 Overview (06/06/2020): Added automatically from request for surgery [id number] Osteoarthritis of knee 11/30/2019 Pain of foot 11/23/2014 Arthralgia of ankle 09/30/2013 Immunizations Immunization Administration Dates Next Due Influenza, Quadrivalent, Spl it, Preservative Free, Intramuscular 12/04/2017 Influenza, Trivalent, IM (MDV) 11/20/2016 Surgical History Surgery Date Site/Laterality Comments ENDOMETRIAL ABLATION 02/10/1991 - 02/10/1992 CARPAL TUNNEL RELEASE 02/10/2005 - 02/09/2006 Bilateral TENDON REPAIR 02/10/2011 - 02/10/2012 L foot TENDON REPAIR 02/11/2016 - 02/09/2017 Bilateral hand TUMOR REMOVAL 02/10/2010 - 02/09/2011 fatty tumor right breast removed DENTAL SURGERY 02/10/2014 - 02/09/2015 implant HYSTEROSCOPY 02/10/2019 - 02/10/2020 COLONOSCOPY 02/10/2019 - 02/10/2020 PARTIAL KNEE ARTHROPLASTY 02/11/2020 - 02/09/2021 Right Medical History Medical History Date Comments Asthma HTN (hypertension) Seasonal allergies GERD (gastroesophageal reflux disease) Family History Medical History Relation Name Comments Heart disease Father Family history of cardiac disorder - (Added by TW Conv) Hypertension Father Family history of hypertension - (Added by TW Conv) Arthritis Mother Family history of arthritis - (Added by TW Conv) Anesthesia problems Neg Hx Relation Name Status Comments Father Mother Social History Tobacco Use Types Packs/Day Years Used Date Smoking Tobacco: Never Smokeless Tobacco: Never AUDIT-C Answer Date Recorded Q1: How often do you have a drink containing alc ohol? Monthly or less 11/18/2023 Q2: How many drinks containi ng alcohol do you have on a typical day when you are drinking? 1 or 2 11/18/2023 Q3: How often do you have si x or more drinks on one occasion? Never 11/18/2023 Personal Safety Answer Date Recorded Have you ever been in or are you currently in a harmful physical or emotional relationship or is someone making you feel afraid or unsafe? Denies 11/18/2023 Comments No Sex and Gender Information Value Date Recorded Sex Assigned at Not on file Legal Sex Female 11:01 AM [employer] Gender Identity Female 04/13/2020 10:01 AM [employer] Sexual Orientation Not on file Obstetrics History Last Filed Vital Signs Vital Sign Reading Time Taken Comments Blood Pressure 118/66 11/18/2023 12:25 PM CDT Pulse 80 11/18/2023 12:30 PM CDT Temperature 35.6 C (96.1 F) 11/18/2023 10:30 AM CDT Respiratory Rate 14 11/18/2023 12:30 PM CDT Oxygen Saturation 98% 11/18/2023 12:30 PM CDT Inhaled Oxygen Concentration - - Weight 83.1 kg (183 lb 3.2 oz) 11/18/2023 5:35 A M CDT Height 154.9 cm (5' 0.98 ) 11/18/2023 5:35 AM CD T Body Mass Index 34.63 11/18/2023 5:35 AM CDT Plan of Treatment Health Maintenance Due Date Last Done Comments Cervical Cancer Screening 1964 Colon Cancer Screening-Colonoscopy 1964 Depression Screening 1964 Hepatitis C Screening 1964 DTaP/Tdap/Td Vaccine (1 - Tdap) 07/23/1975 Hepatitis B Screening 1982 Regular Well Visit/Exam 18-64 1982 Zoster Vaccine (1 of 2) 2014 Covid-19 Vaccine ( season) 2023 12/13/2021, 12/05/2020, 05/19/2020, Additional history exists Breast Cancer Screening-Mammogram 07/03/2024 07/04/2023, 07/04/2023, 07/02/2022, Additional history exists Influenza Vaccine (Season Ended) 2024 12/04/2017, 11/20/2016 Pneumococcal vaccine <65 Aged Out No longer eligible based on patient's age to complete this topic Medical Devices Implanted Type Area Butter Printer Device Identifier Shelf Expiration Date Model / Serial / Lot Screws Left: Foot [employer] 6191-1-010 Simplex P Radiopaque Full Dose Cement Bone Sterile - [id number] Implanted:Qty: 1 on 06/21/2020 by Ishmael Wellington MD at [facility] Right: Knee [employer] 11/09/2021 6191-1-01 0 / / [id number] Description:All implant time s are approximate [employer] [id number] Cmpnt Fem 2 Std Knee Condyle Right Medial Left Lat - [id number] Implanted:Qty: 1 on 06/21/2020 by Ray Orr MD at [facility] Right: Knee [employer] [id number] 04/27/2024 [id number] / / [id number] Description:ALL IMPLANT TIME S ARE APPROXIMATE [employer] [id number] Bsplt Tibial 2 Knee Right Medial Left Lat Mck System - [id number] Implanted:Qty: 1 on 06/21/2020 by Ray Orr MD at [facility] Right: Knee [employer] [id number] 01/02/2024 [id number] / / [id number] Description:ALL IMPLANT TIME S ARE APPROXIMATE [employer] [id number] Insert Tibial 2 9mm Knee Unicompartmental Onlay Khris X3 - [id number] Implanted:Qty: 1 on 06/21/2020 by Ray Orr MD at [facility] Right: Knee [employer] [id number] 02/14/2021 [id number] / / [id number] Description:ALL IMPLANT TIME S ARE APPROXIMATE [employer] Cmpnt Fem 2 Knee Left Medial Right Lat Mck System [id number] - [id number] Implanted:Qty: 1 on 11/18/2023 at [facility] Left: Knee [employer] 08/29/2026 [id number] / / [id number] [employer] Bsplt Tibial 2 Knee Left Medial Right Lat Mck System [id number] - [id number] Implanted:Qty: 1 on 11/18/2023 at [facility] Left: Knee [employer] 01/09/2026 [id number] / / [id number] [employer] Smartset Medium Viscosity Cement 40gm Bone Sterile 3122-040 - [id number] Implanted:Qty: 1 on 11/18/2023 at [facility] Left: Knee [employer] 03/12/2025 3122-040 / / [id number] [employer] Insert Mck Tibial X3 Onlay Size 2 X 8mm [id number]-A - [id number] Implanted:Qty: 1 on 11/18/2023 at [facility] Left: Knee [employer] 01/22/2027 [id number] / / [id number] Explanted Type Area Butter Printer Device Identifier Shelf Expiration Date Model / Serial / Lot [employer] [id number] 4mm 140mm Knee Straight Pin Fixation Sterile - [id number] Explanted:Qty: 1 on 06/21/2020 by Ray Orr MD at [facility] Right: Knee [employer] [id number] 09/14/2024 [id number] / / [id number] Description:BONE PINS FOR TE MPORARY FIXATION, NOT IMPLANTED [employer] [id number] 4mm 110mm Pin Fixation Sterile - [id number] Explanted:Qty: 1 on 06/21/2020 by Ray Orr MD at [facility] Right: Knee [employer] [id number] 09/14/2024 [id number] / / [id number] Description:BONE PINS FOR TE MPORARY FIXATION, NOT IMPLANTED Insurance [facility]LY [facility] ACCESS CHOICE ANTHEM ACCESS CHOICE Member Subscriber Plan / Payer (Ef fective 2013-Present) Name:Joy Mishra R Relation to Subscriber:Spouse Name:FEDE MISHRA Date of :1961 (Home) Address: [address] [place] [address] Payer ID:[id number] (NAIC) Type:[employer] Address: [address] [place] [address] ANTHEM ACCESS CHOICE Member Subscriber Plan / Payer (Ef fective 2019-Present) Name:Joy Mishra Relation to Subscriber:Spouse Name:FEDE MISHRA Date of :1961 (Home) Address: [address] [place] [id number] Payer ID:[id number] (NAIC) Type:[employer] Address: [place] [address] ANTHEM ACCESS CHOICE Care Teams Voice Teacher Relationship Specialty Start Date End Date Uri Coello MD [facility] [place] [address] PCP - General 11/26/19 Kwame Woodall MD [facility] [place] [address] Consulting Physician Rheumatology 09/27/20
--- OUTSIDE RECORDS SUMMARY | 2024-05-27 00:56 | XMS_ITS ---
Author Organization [facility] Address [address] [place], [place] [id number] Care Team Providers Care Company Pilot Name Role Phone CALOS TRENT Unavailable [phone] Uri Coello Unavailable Unavailable Allergies Allergen (clinical drug ingredient) Drug/Non Drug Allergy documented on EMR Reaction Allergy Type Onset Date Status cephalexin Cephalexin Unknown Drug Allergy 10/11/2020 acti ve REASON FOR VISIT would like custom orthotics, [facility]UST[facility]TH[facility], Patient complains of a painful callus Medications Medication SIG (Take, Route, Frequency, Duration) Notes Start Date End Date Status ergocalciferol 1.25 MG Oral Capsule ORAL ergocalciferol 1.25 MG Oral CapsuleOriginal Medicationergocalciferol 1.25 MG Oral Capsule *Reorder from [employer] for eRx and Interaction Alerts* 1 Active ferrous sulfate 325 MG Oral Tablet ORAL ferrous sulfate 325 MG Oral TabletOriginal Medicationferrous sulfate 325 MG Oral Tablet *Reorder from [employer] for eRx and Interaction Alerts* 1 Active folic acid 0.4 MG / vitamin B12 2.5 MG Disintegrating Oral Tablet ORAL folic acid 0.4 MG / vitamin B12 2.5 MG Disintegrating Oral TabletOriginal Medicationfolic acid 0.4 MG / vitamin B12 2.5 MG Disintegrating Oral Tablet *Reorder from [employer] for eRx and Interaction Alerts* 1 Active loratadine 10 MG Oral Tablet [Claritin] ORAL loratadine 10 MG Oral Tablet [Claritin]Original Medicationloratadine 10 MG Oral Tablet [Claritin] *Reorder from [employer] for eRx and Interaction Alerts* 1 Active vitamin E 450 MG Oral Capsule ORAL vitamin E 450 MG Oral CapsuleOriginal Medicationvitamin E 450 MG Oral Capsule *Reorder from [employer] for eRx and Interaction Alerts* 1 Active Vital Signs Height 61.00 in 08/13/2023 Weight 250 lbs 08/13/2023 BMI 47.23 kg/m2 08/13/2023 Height-cm 154.94 cm 08/13/2023 Weight-kg 113.4 kg 08/13/2023 Encounters Encounter Location Date Provider Diagnosis [facility] [address] [place], [place] [id number] 08/13/2023 CALOS TRENT Acquired keratoderma L85.1 ; Corns and callosities L84 ; Metatarsalgia of right foot M77.41 ; Metatarsalgia of left foot M77.42 ; Posterior tibial tendinitis of right lower extremity M76.821 ; Posterior tibial tendinitis of left lower extremity M76.822 ; Primary osteoarthritis, right ankle and foot M19.071 ; Primary osteoarthritis, left ankle and foot M19.072 and Difficulty in walking involving ankle and foot joint R26.2 Assessments Encounter Date Diagnosis (ICD Code) Assessment Notes Treatment Notes Treatment Clinical Notes Section Notes 08/13/2023 Acquired keratoderma (ICD-10 - L85.1) 1. A total of 1 corns or calluses, as described in the note above, were cut and pared utilizing a #15 blade 2. Shoe Gear Recommendation: Advised patient on appropriate shoe gear for protection, healing and good foot health 3. Script provided for orthotics from [facility] 08/13/2023 Corns and callosities (ICD-10 - L84) 08/13/2023 Metatarsalgia of right foot (ICD-10 - M77.41) 08/13/2023 Metatarsalgia of left foot (ICD-10 - M77.42) 08/13/2023 Posterior tibial tendinitis of right lower extremity (ICD-10 - M76.821) 08/13/2023 Posterior tibial tendinitis of left lower extremity (ICD-10 - M76.822) 08/13/2023 Primary osteoarthritis, right ankle and foot (ICD-10 - M19.071) 08/13/2023 Primary osteoarthritis, left ankle and foot (ICD-10 - M19.072) 08/13/2023 Difficulty in walking involving ankle and foot joint (ICD-10 - R26.2) Plan Of Treatment Treatment Notes Assessment Notes Acquired keratoderma 1. A total of 1 corns or calluses, as described in the note above, were cut and pared utilizing a #15 blade 2. Shoe Gear Recommendation: Advised patient on appropriate shoe gear for protection, healing and good foot health 3. Script provided for orthotics from [facility] Next Appt Details Follow Up: prn, Reason: want s to see how she does with new inserts Progress Notes * ANA OSULLIVAN RDOB: [birth year] (58 yo F)Acc No.[id number]:08/13/2023 Patient: ANA MOSS Provider: Dante Trent DPM :1965 A ge:58 Y S ex:Female Date:08/13/2023 Address:[address] [place], [place] [id number] Subjective: * Chief Complaints: * 1 . Would like custom orthotics. 2. CUSTOM ORTHO. 3. Patient complains of a painful callus. * HPI: H PI: New Complaint E stablished patient presents with a new complaint. P atient complains of an issue to needing another prescription for orthotics to take to [facility]. Patient states her problem is unchanged. P atient denies any injury. M A:SS. * ROS: G eneral / Constitutional: Patient denies c hills, fatigue, fever. C ardiovascular: Patient denies h air loss on leg, chest pain. ? M usculoskeletal: Patient complains of a rthritis, joint stiffness. ? P eripheral Vascular: Patient denies c old extremities, ulceration of feet. ? P odiatric: Patient complains of d ifficulty walking, foot pain, ball of foot pain. S kin: Patient complains of c alluses and corns, dry skin. ? N eurologic: Patient denies B urning/Tingling, Numbness. ? * Medical History: M edical History Verified. * Family History: F ather: PRN - Father: :: Hypertension,,known absent , :: Pneumonia,,known absent , :: Neuropathy,,known absent . M other: PRN - Mother: :: Arthritis,,known absent , :: Radiation therapy,,known absent , :: Varicose vein,,known absent . * Social History: M igrated Social History: M igrated Social History: History of tobacco use : , Alcohol intake : , Smoking Status : Never used tobacco. * Medications: T aking ergocalciferol 1.25 MG Oral Capsule ORAL , Notes to Pharmacist: ergocalciferol 1.25 MG Oral CapsuleOriginal Medicationergocalciferol 1.25 MG Oral Capsule *Reorder from [facility] for eRx and Interaction Alerts*, Taking ferrous sulfate 325 MG Oral Tablet ORAL , Notes to Pharmacist: ferrous sulfate 325 MG Oral TabletOriginal Medicationferrous sulfate 325 MG Oral Tablet *[facility] and Interaction Alert[facility]*, Taking folic acid 0.4 MG / vitamin B12 2.5 MG Disintegrating Oral Tablet ORAL , Notes to Pharmacist: folic acid 0.4 MG / vitamin B12 2.5 MG Disintegrating Oral TabletOriginal Medicationfolic acid 0.4 MG / vitamin B12 2.5 MG Disintegrating Oral Tablet *Reorder from [facility] for eRx and Interaction Alerts*, Taking loratadine 10 MG Oral Tablet [Claritin] ORAL , Notes to Pharmacist: loratadine 10 MG Oral Tablet [Claritin]Original Medicationloratadine 10 MG Oral Tablet [Claritin] *[facility] and Interaction Alert[facility]*, Taking vitamin E 450 MG Oral Capsule ORAL , Notes to Pharmacist: vitamin E 450 MG Oral CapsuleOriginal Medicationvitamin E 450 MG Oral Capsule *[facility] for [facility] and Interaction Alerts*, Medication List reviewed and reconciled with the patient * Allergies: C ephalexin: Allergy - Onset Date 10/11/2020. Objective: * Vitals: W t:250lbs, Wt-k.4 kg, Ht: 61.00 in, Ht-cm: 154.94 cm, BMI:47.23Index, Body Surface Area: 2.21. * Examination: C onstitutional: Constitutional T he patient is awake, alert, well developed, well groomed and well nourished.. M usculoskeletal: Muscle Strength M uscle strength is 5/5 in regards to dorsiflexion, plantarflexion, inversion, and eversion in bilateral lower extremities.. Pain on palpation P ain on palpation noted to the plantar aspect of the 5th metatarsal heads on the left foot. Gait T here is an antalgic gait noted. ? N eurologic: Tinel's sign: n egative. Gross sensation G ross sensation is intact to light touch..? V ascular: Dorsalis pedis pulse: 2 /4, bilateral. Posterior tibial pulse: 2 /4, bilaterally. Capillary refill: l ess than 3 seconds. ? D ermatologic: Skin findings: S kin is warm, dry, supple with no breaks in the skin.. Hyperkeratotic Skin Lesion T here is evidence of hyperkeratotic skin lesions present on the, plantar aspect of the 5th metatarsal head left foot. ? Assessment: * Assessment: 1. A cquired keratoderma - L85.1 (Primary) 2 . C orns and callosities - L84? 3. M etatarsalgia of right foot - M77.41 4 . M etatarsalgia of left foot - M77.42 5 . P osterior tibial tendinitis of right lower extremity - M76.821 6 . P osterior tibial tendinitis of left lower extremity - M76.822? 7. P rimary osteoarthritis, right ankle and foot - M19.071 8 .?Primary osteoarthritis, left ankle and foot - M19.072 9 . D ifficulty in walking involving ankle and foot joint - R26.2 Plan: * Treatment: * Immunizations: Immunization record has been reviewed and updated. * Follow Up: p rn (Reason: wants to see how she does with new inserts) * Billing Information: * Visit Code: 00148 Office Visit, Est Pt., Level 3. * Procedure Codes: * Sign off status: Completed true * Provider: Dante Trent DPM Date: 0 08/13/2023 Generated for Akhil duenas/Bradley/eTransmitting on: 0 05/27/2024 12:56 AM CDT History and Physical Notes * HPI (History of Present Illness) Category Sub-Category Detail Notes Category Not es HPI New Complaint Established cecil ent presents with a new complaint. Patient complains of an issue to needing another prescription for orthotics to take to [facility]. Patient states her problem is unchanged. Patient denies any injury. MA:SS Examination Category Sub-Category Detail Notes Category Not es Dermatologic Skin findings: Skin is warm, dr y, supple with no breaks in the skin. Hyperkeratotic Skin Lesion There is evid ence of hyperkeratotic skin lesions present on the, plantar aspect of the 5th metatarsal head left foot Neurologic Tinel's sign: negative Gross sensation Gross sensation is i ntact to light touch. Vascular Dorsalis pedis pulse: 2/4, bilateral Capillary refill: less than 3 seconds Posterior tibial pulse: 2/4, bilaterally Musculoskeletal Muscle Strength Muscle strength is 5/5 in regards to dorsiflexion, plantarflexion, inversion, and eversion in bilateral lower extremities. Pain on palpation Pain on palpation no elvia to the plantar aspect of the 5th metatarsal heads on the left foot Gait There is an antalgic gait noted Constitutional Constitutional The patient is a wake, alert, well developed, well groomed and well nourished.
--- OUTSIDE RECORDS SUMMARY | 2024-05-27 00:56 | XMS_ITS | Referral Summary ---
Author Organization [facility] Address [address] [place] [address] Care Team Providers Care Mold Sheet Cleaner Name Role Phone Uri Coello MD Primary Care Provider [phone] Kwame Woodall MD Unavailable [phone] Allergies Active Allergy Reactions Criticality Noted Date Comments Cephalexin Other (See comments) Low 11/10/2020 Severe abdominal pain [place] Oil Angioedema High 02/11/2019 Medications VENTOLIN HFA [...] (06/06/2020): Added automatically from request for surgery [id number] Osteoarthritis of knee 11/30/2019 Pain of foot 11/23/2014 Arthralgia of ankle 09/30/2013 Immunizations Immunization Administration Dates Next Due Influenza, Quadrivalent, Spl it, Preservative Free, Intramuscular 12/04/2017 Influenza, Trivalent, IM (MDV) 11/20/2016 Social History Tobacco Use Types Packs/Day Years [...] on file Legal Sex Female 11:01 AM STAFFING EXECUTIVE Gender Identity Female 04/13/2020 10:01 AM STAFFING EXECUTIVE Sexual Orientation Not on file Last Filed Vital Signs Vital Sign Reading [...] 11/18/2023 5:35 AM CDT Plan of Treatment Not on file Medical Devices Implanted Type Area [employer] Director Device Identifier Shelf Expiration Date Model / Serial / Lot Screws Left: Foot [employer] 6191-1-010 Simplex P Radiopaque Full Dose Cement Bone Sterile - [id number] Implanted:Qty: 1 on 06/21/2020 by Ishmael Wellington MD at [facility] Right: Knee [employer] 11/09/2021 6191-1-01 0 / / [id number] Description:All implant time s are approximate [employer] [id number] Cmpnt Fem 2 Std Knee Condyle Right Medial Left Lat - [id number] Implanted:Qty: 1 on 06/21/2020 by Ray Orr MD at [facility] Right: Knee [employer] [id number] 04/27/2024 [id number] / / [id number] Description:ALL IMPLANT TIME S ARE APPROXIMATE [employer] 634916 Bsplt Tibial 2 Knee Right Medial Left Lat Mck System - [id number] Implanted:Qty: 1 on 06/21/2020 by Ray Orr MD at [facility] Right: Knee [employer] [id number] 01/02/2024 979700 / / [id number] Description:ALL IMPLANT TIME S ARE APPROXIMATE [employer] 239874-1 Insert Tibial 2 9mm Knee Unicompartmental [place] Khris X3 - [id number] Implanted:Qty: 1 on 06/21/2020 by Ray Orr MD at [facility] Right: Knee [employer] [id number] 02/14/2021 092276-0 / / [id number] Description:ALL IMPLANT TIME S ARE APPROXIMATE [employer] Cmpnt Fem 2 Knee Left Medial Right Lat Mck System 846606 - [id number] Implanted:Qty: 1 on 11/18/2023 at [facility] Left: Knee [employer] 08/29/2026 [id number] / / [id number] [employer] Bsplt Tibial 2 Knee Left Medial Right Lat Mck System 847358 - [id number] Implanted:Qty: 1 on 11/18/2023 at [facility] Left: Knee [employer] 01/09/2026 [id number] / / [id number] [employer] Smartset Medium Viscosity Cement 40gm Bone Sterile 3122-040 - [id number] Implanted:Qty: 1 on 11/18/2023 at [facility] Left: Knee [employer] 03/12/2025 3122-040 / / [id number] [employer] Insert Mck Tibial X3 Onlay Size 2 X 8mm 997527-3-Y - [id number] Implanted:Qty: 1 on 11/18/2023 at [facility] Left: Knee [employer] 01/22/2027 118571-0- E / / [id number] Explanted Type Area [employer]eral [employer] Director Device Identifier Shelf Expiration Date Model / Serial / Lot [employer] 235870 4mm 140mm Knee Straight Pin Fixation Sterile - [id number] Explanted:Qty: 1 on 06/21/2020 by Ray Orr MD at [facility] Right: Knee [employer] [id number] 09/14/2024 161954 / / [id number] Description:BONE PINS FOR TE MPORARY FIXATION, NOT IMPLANTED [employer] 119239 4mm 110mm Pin Fixation Sterile - [id number] Explanted:Qty: 1 on 06/21/2020 by Ray Orr MD at [facility] Right: Knee [employer] [id number] 09/14/2024 222463 / / [id number] Description:BONE PINS FOR TE MPORARY FIXATION, NOT IMPLANTED Insurance [facility] ACCESS CHOICE Member Subscriber Plan / Payer (Ef fective 2013-Present) Name:Joy Mishra Relation to Subscriber:Spouse Name:FEDE MISHRA Date of :1899 (Home) Address: [address] [place] [phone] Payer ID:[id number] (NAIC) Type:[employer] Address: [address] [place] [address] [employer] ACCESS CHOICE Member Subscriber Plan / Payer (Ef fective 2013-Present) Name:Joy Mishra Relation to Subscriber:Spouse Name:FEDE MISHRA Date of :1961 (Home) Address: [address] [place] [address] Payer ID:[id number] (NAIC) Type:[employer] Address: [address] [place] [address] [employer] ACCESS CHOICE Member Subscriber Plan / Payer ( fective 2019-Present) Name:Joy Mishra Relation to Subscriber:Spouse Name:FEDE MISHRA Date of :1961 (Home) Address: [address] [place] [phone] Payer ID:[id number] (NAIC) Type:[employer] Address: [address] [place] [address] [employer] ACCESS CHOICE Care Teams Mold Sheet Cleaner Relationship Specialty Start Date End Date Uri Coello MD [address] [place] [id number] PCP - General 11/26/19 Kwame Woodall MD [facility] [place] [address] Consulting Physician Rheumatology 09/27/20
--- OUTSIDE RECORDS SUMMARY | 2024-05-27 00:56 | XMS_ITS | Encounter Summary ---
Author Organization [facility] Address [address] [place] [address] Care Team Providers Care Apron Operator Name Role Phone None, Provider Primary Care Provider Darrina Uri Blum MD Primary Care Provider Alida Gaines Unavailable Alida Gaines Primary Care Provider [phone] Encounter Details Date Type Department Care Team (Late st Contact Info) Description 02/11/[address] [facility] [address] [place] [address] Lauren Crawford MD [address] [address] Social History Tobacco Use Types Packs/Day Years Used Date Smoking Tobacco: Never Smokeless Tobacco: Never Alcohol Use Standard Drinks/Week Comments Yes 0 (1 standard drink = 0.6 oz pur e alcohol) occ Comments No Sex and Gender Information Value Date Recorded Sex Assigned at Not on file Legal Sex Female 9:01 PM CDT Gender Identity Not on file Sexual Orientation Not on file documented as of this encounter Plan of Treatment Upcoming Encounters Date Type Department Care Team (Late Contact Info) Description 07/07/2024 11:[address] [facility] [address] [place] [address] Uri Coello MD [facility] [place] [address] documented as of this encounter Visit Diagnoses Not on filedocumented in this encounter Care Teams Apron Operator Relationship Specialty Start Date End Date None, Provider, PCP - General 02/11/19 03/09/19 Uri Coello MD [address] [place] [phone] PCP - General INTERNAL MEDICINE 03/10/19 04/22/24 Alida Gaines PA [address] [place] [address] PCP - General PHYSICIAN DOUBLE BOTTOM DRIVER 04/23/24 Alida Gaines PA [address] [place] [address] PHYSICIAN DOUBLE BOTTOM DRIVER 04/23/24 04/23/24 documented as of this encounter
--- OUTSIDE RECORDS SUMMARY | 2024-05-27 00:56 | XMS_ITS | Patient Health Record ---
Author Organization [facility] Address [address] [place], [place] [address] Care Team Providers Care Senior Pensions Administrator Name Role Phone CALOS OVERTON Unavailable [phone] Uri Coello Unavailable Unavailable Allergies Allergen (clinical drug ingredient) Drug/Non Drug Allergy documented on EMR Reaction Allergy Type Onset Date Status cephalexin Cephalexin Unknown Drug Allergy 10/11/2020 acti ve Reason For Referral No Information Medications Medication SIG (Take, Route, Frequency, Duration) Notes Start Date End Date Status ergocalciferol 1.25 MG Oral Capsule ORAL ergocalciferol 1.25 MG Oral CapsuleOriginal Medicationergocalciferol 1.25 MG Oral Capsule *Reorder from [employer] for eRx and Interaction Alerts* 1 Active ferrous sulfate 325 MG Oral Tablet ORAL ferrous sulfate 325 MG Oral TabletOriginal Medicationferrous sulfate 325 MG Oral Tablet *Reorder from [employer] for eRx and Interaction Alerts* 1 Active folic acid 0.4 MG / vitamin B12 2.5 MG Disintegrating Oral Tablet ORAL folic acid 0.4 MG / vitamin B12 2.5 MG Disintegrating Oral TabletOriginal Medicationfolic acid 0.4 MG / vitamin B12 2.5 MG Disintegrating Oral Tablet *Reorder from [employer] for eRx and Interaction Alerts* 1 Active loratadine 10 MG Oral Tablet [Claritin] ORAL loratadine 10 MG Oral Tablet [Claritin]Original Medicationloratadine 10 MG Oral Tablet [Claritin] *Reorder from [employer] for eRx and Interaction Alerts* 1 Active vitamin E 450 MG Oral Capsule ORAL vitamin E 450 MG Oral CapsuleOriginal Medicationvitamin E 450 MG Oral Capsule *Reorder from [employer] for eRx and Interaction Alerts* Active Vital Signs Height-cm 154.94 cm 08/13/2023 Weight-kg 113.4 kg 08/13/2023 Height 61.00 in 08/13/2023 Weight 250 lbs 08/13/2023 BMI 47.23 kg/m2 08/13/2023 Encounters Encounter Location Date Provider Diagnosis [facility] [address] [place], [place] [id number] 08/13/2023 CALOS OVERTON Acquired keratoderma L85.1 ; Corns and callosities [...] Notes Treatment Clinical Notes Section Notes 08/13/2023 Corns and callosities (ICD-10 - L84) 08/13/2023 Acquired keratoderma (ICD-10 - L85.1) 1. A total of 1 corns or calluses, as described in the note above, were cut and pared utilizing a #15 blade 2. Shoe Gear Recommendation: Advised patient on appropriate shoe gear for protection, healing and good foot health 3. Script provided for orthotics from [facility] 08/13/2023 Metatarsalgia of right foot (ICD-10 - [...] joint (ICD-10 - R26.2) Plan Of Treatment No Information Insurance Providers Payer Name Payer Address Payer Phone Subscriber Number Group Number Insured Name Patient Relationship to Insured Coverage Start Date Coverage End Date [facility] ([facility]) ATTN CLAIMS [address] [place] [address] [id number] SARAH OSULLIVAN Spouse - patient is the spouse of the insured
--- OUTSIDE RECORDS SUMMARY | 2024-05-27 00:56 | XMS_ITS | Clinical Summary ---
Author Organization [facility] Address [address] [place] [id number] Care Team Providers Care Portrait Photographer Name Role Phone Iesha Gaines Primary Care Provider [phone] Allergies Active Allergy Reactions Criticality Noted Date Comments Crook Oil Angioedema High 02/11/2019 Medications albuterol sulfate HFA (VENTOLIN HFA) 108 (90 Base) MCG/ACT inhaler Inhale 2 puffs into the lungs every 4 (four) hours as needed. Active cholecalciferol (D-5000) 125 MCG (5000 UT) Tab Take 1 tablet by mouth daily. Active vitamin B-12 (KP VITAMIN B-12) 1000 MCG tablet Take 1 tablet by mouth daily. Active lisinopril-hydr ochlorothiazide 10-12.5 MG tablet Take 0.5 tablets by mouth daily. 11/14/2018 Active loratadine (CLARITIN) 10 MG tablet Take 1 tablet by mouth daily. Active meloxicam 15 MG tablet Take 15 mg by mouth daily with breakfast. 11/14/2018 Active vitamin E 400 UNIT capsule Take 1 capsule by mouth daily. Active Encounters Date Type Department Care Team Description 04/23/2024 8:42 AM CDT - 04/23/2024 11:59 PM CDT [place] [address] [place] [address] Iesha Gaines PA Discharge Disposition: Home or Self Care (Routine Discharge) 04/23/2024 Travel from Last 3 Months Immunizations Immunization Administration Dates Next Due PFIZER COVID-19 (ORIGINAL FO RMULATION, PURPLE CAP) mRNA, LNP-S, PF, 30 MCG/0.3 ML DOSE 12/05/2020,05/19/2020,04/27/2020 Family History Medical History Relation Comments Hypertension Father Cancer Maternal Grandfather Relation Status Comments Father Alive Maternal Grandfather lung Mother Alive Social History Tobacco Use Types Packs/Day Years Used Date Smoking Tobacco: Never Smokeless Tobacco: Never Alcohol Use Standard Drinks/Week Comments Yes 0 (1 standard drink = 0.6 oz pur e alcohol) occ Comments No Sex and Gender Information Value Date Recorded Sex Assigned at Not on file Legal Sex Female 9:01 PM CDT Gender Identity Not on file Sexual Orientation Not on file Last Filed Vital Signs Vital Sign Reading Time Taken Comments Blood Pressure 151/89 03/10/2019 8:28 AM STOVE FITTER Pulse 74 03/10/2019 8:28 AM STOVE FITTER Temperature 36.4 C (97.5 F) 03/10/2019 8:28 AM STOVE FITTER Respiratory Rate 18 02/25/2019 5:25 PM STOVE FITTER Oxygen Saturation 99% 03/10/2019 8:28 AM STOVE FITTER Inhaled Oxygen Concentration - - Weight 93.4 kg (205 lb 14.6 oz) 020 11:31 AM STOVE FITTER Height 154.9 cm (5' 1 ) 02/11/2019 4:06 PM STOVE FITTER Body Mass Index 38.91 02/11/2019 4:06 PM STOVE FITTER Plan of Treatment Upcoming Encounters Date Type Department Care Team (Late st Contact Info) Description 07/07/2024 11:15 AM CDT Appointment [facility] [address] [place] [address] Uri Gagnon MD [facility] [place], [place] [id number] Health Maintenance Due Date Last Done Comments Colorectal Cancer Screening Colonoscopy (10 Years) 1964 Annual Physical 07/23/1967 Hepatitis C 1982 Cervical Cancer Screening Pap with HPV Testing (Age 30 to 64) Every 5 Years 1994 Pneumococcal Vaccine: 50+ Years (1 of 1 - PCV) 2014 Zoster Vaccines (1 of 2) 2014 Cervical Cancer Screening Pap Smear (Age 30 to 64) Every 3 Years 03/10/2017 03/10/2014 Cervical Cancer Screening with HPV 03/10/2017 COVID-19 Vaccine ( season) 2023 12/13/2021, 12/05/2020, 05/19/2020, Additional history exists Mammogram Screening 07/03/2025 07/04/2023, 07/02/2022, 02/15/2021, Additional history exists DTaP, Tdap and Td Vaccines (2 - Tdap) 03/02/2026 03/02/2016 Meningococcal B Vaccine Aged Out No l onger eligible based on patient's age to complete this topic Meningococcal Vaccine Aged Out No bertrand morena eligible based on patient's age to complete this topic RSV Immunizations Under 20 Months Aged Out No longer eligible based on patient's age to complete this topic Medical Devices Implanted Type Area Armed Security Officer Device Identifier Shelf Expiration Date Model / Serial / Lot Screws Ankle Dental Lower Procedures Procedure Name Priority Date/Time Associated Diagnosis Comments CT ABD+PEL WO CON Routine 04/23/2024 8:5 5 AM CDT Unspecified abdominal pain Low back pain, unspecified MG SCREENING W JANESSA JANE DIGI Routine 07/04/2023 1:45 PM CDT Visit for screening mammogram THINPREP IMAGING PAP REFLEX HPV MRNA E6/E7 Routine 03/10/2014 4:36 PM STOVE FITTER from Last 3 Months or Most Recently Relevant to Health Maintenance Results * CT ABD+PEL WO CON (04/23/2024 8:55 AM CDT) Anatomical Region Laterality Modality Abdomen Computed Tomogra phy 04/26/2024 1:44 AM CDT Impressions 04/26/2024 1:51 AM CDT Impression: 1. There is no free air or free fluid. No abdominal or pelvic mass. 2. Segments of under distention of the colon with emdu-ld-cwtjpgtb stool retention and diverticula in the distal colon. Limited evaluation of the right colon and the cecum due to under distention and redundancy. Mild fluid collection in the cecum. Given the patient's symptoms would consider GI consultation concerning need for colonoscopy especially with attention to the right colon and the cecum. The fat planes around the cecum and the colon appear unremarkable. 3. No evidence of appendicitis. The small bowel shows no acute findings. 4. Underdistended stomach. Small hiatal hernia. 5. Gallstones. No biliary dilatation. Referred By: IESHA GAINES Interpreted By: Gordo Romero MD, 04/26/2024 1:44 AM Narrative 04/26/2024 1:51 AM CDT [facility] [address] [facility] [place] [address] CT abdomen and pelvis without contrast: 04/26/2024 1:44 AM INDICATION: 58 yearsold Femalewith history of Abdominal pain TECHNIQUE: CT, without contrast, is performed utilizing contiguous 3mm axial collimation through the abdomen, pelvis. Additionally, multiplanar reformats were obtained from axial source data. A dose lowering technique was used for this procedure, which may include, but is not limited to, dose reduction techniques, automated exposure control, the use of a iterative reconstruction, and ALARA (as low as reasonably achievable)/image gently techniques. COMPARISON: No previous studies.. FINDINGS: Chest: Base of the chest shows no focal infiltrates in the lungs. Mild areas of atelectatic and scarring changes adjacent to the spine at the posteromedial aspect of the right lower lobe likely of no acute significance. Distal esophagus unremarkable. Tiny small hiatal hernia. No effusion. Abdomen: The liver and spleen demonstrate no acute abnormalities. As visualized without contrast no focal lesions in these organs. In the gallbladder there are multiple stones. No fluid in the gallbladder fossa. Pancreas has smooth contours and normal size. No inflammation around the pancreas. In the reynold hepatis there are no masses. Adrenal glands demonstrate no masses or nodules. Kidneys: The right kidney shows no stones or hydronephrosis. Involving the right ureter there are no stones. No perinephric edema. The left kidney shows no stones or hydronephrosis. No perinephric edema. Without contrast no focal lesions can be seen in the renal cortex. The urinary bladder is not well distended. No abnormal densities. Pelvis: Anteverted uterus. No midline mass or free fluid. There is no adnexal mass. Aorta: Normal size. In the retroperitoneal area no masses. There are no enlarged lymph nodes. No enlarged lymph nodes in the pelvis or groin. Mesentery: No free air. Smooth peritoneal contours. The midabdomen shows no mass. The root of the mesentery shows no inflammatory changes. No enlarged lymph nodes. GI tract: Small hiatal hernia. The stomach is not well distended for satisfactory assessment. The small bowel loops show no obstructing pattern or abnormal dilatation. No evidence of appendicitis. Colon is redundant with mild fluid retention in the cecum with no thickening of the wall of the cecum. Segments of under distention of the redundant right colon and hutx-qa-tkxnsjnq stool retention throughout the colon. There are uncomplicated diverticula in the distal colon. The fat planes around the colon are unremarkable. If the patient has still unexplained right lower quadrant pain would consider GI consultation concerning need for evaluation of the colon including colonoscopy. In the abdominal wall there is no mass. The osseous structures show degenerative changes of tjsx-ax-eklzdyxs degree in the spine including lower facet disease. In the bony pelvis no acute abnormalities. Procedure Note Gordo Romero MD - 04/26/2024 [facility] [address] [facility] [place] [address] CT abdomen and pelvis without contrast: 04/26/2024 1:44 AM INDICATION: 58 yearsold Femalewith history of Abdominal pain TECHNIQUE: CT, without contrast, is performed utilizing contiguous 3mmaxial collimation through the abdomen, pelvis. Additionally, multiplanarreformats were obtained from axial source data. A dose lowering techniquewas used for this procedure, which may include, but is not limited to,dose reduction techniques, automated exposure control, the use of aiterative reconstruction, and ALARA (as low as reasonablyachievable)/image gently techniques. COMPARISON: No previous studies.. FINDINGS: Chest: Base of the chest shows no focal infiltrates in the lungs. Mild areas ofatelectatic and scarring changes adjacent to the spine at theposteromedial aspect of the right lower lobe likely of no acutesignificance. Distal esophagus unremarkable. Tiny small hiatal hernia. Noeffusion. Abdomen: The liver and spleen demonstrate no acute abnormalities. As visualizedwithout contrast no focal lesions in these organs. In the gallbladder there are multiple stones. No fluid in the gallbladderfossa. Pancreas has smooth contours and normal size. No inflammation around thepancreas. In the reynold hepatis there are no masses. Adrenal glands demonstrate no masses or nodules. Kidneys: The right kidney shows no stones or hydronephrosis. Involving theright ureter there are no stones. No perinephric edema. The left kidney shows no stones or hydronephrosis. No perinephric edema. Without contrast no focal lesions can be seen in the renal cortex. The urinary bladder is not well distended. No abnormal densities. Pelvis: Anteverted uterus. No midline mass or free fluid. There is noadnexal mass. Aorta: Normal size. In the retroperitoneal area no masses. There are noenlarged lymph nodes. No enlarged lymph nodes in the pelvis or groin. Mesentery: No free air. Smooth peritoneal contours. The midabdomen showsno mass. The root of the mesentery shows no inflammatory changes. Noenlarged lymph nodes. GI tract: Small hiatal hernia. The stomach is not well distended forsatisfactory assessment. The small bowel loops show no obstructing patternor abnormal dilatation. No evidence of appendicitis. Colon is redundant with mild fluid retention in the cecum with nothickening of the wall of the cecum. Segments of under distention of theredundant right colon and dewx-op-sfjiekgi stool retention throughout thecolon. There are uncomplicated diverticula in the distal colon. The fatplanes around the colon are unremarkable. If the patient has still unexplained right lower quadrant pain wouldconsider GI consultation concerning need for evaluation of the colonincluding colonoscopy. In the abdominal wall there is no mass. The osseous structures show degenerative changes of ugfe-ru-yburexdqotilvm in the spine including lower facet disease. In the bony pelvis noacute abnormalities. Impression: 1. There is no free air or free fluid. No abdominal or pelvic mass. 2. Segments of under distention of the colon with vqjf-rg-snlylhom stoolretention and diverticula in the distal colon. Limited evaluation of theright colon and the cecum due to under distention and redundancy. Mildfluid collection in the cecum. Given the patient's symptoms would considerGI consultation concerning need for colonoscopy especially with attentionto the right colon and the cecum. The fat planes around the cecum and thecolon appear unremarkable. 3. No evidence of appendicitis. The small bowel shows no acute findings. 4. Underdistended stomach. Small hiatal hernia. 5. Gallstones. No biliary dilatation. Referred By: IESHA GAINES Interpreted By: Gordo Romero MD, 04/26/2024 1:44 AM Iesha Gaines [place] CT Final Result * MG SCREENING W JANESSA JANE DIGI (07/04/2023 1:45 PM CDT) Anatomical Region Laterality Modality Breast Bilateral Mammography 07/04/2023 3:47 PM CDT Impressions 07/04/2023 3:49 PM CDT IMPRESSION: No interval features to suggest malignancy. In the absence of clinical symptoms, return for annual screening due in one year. Recommendation: Routine Screening Bilateral. Assessment: ACR BI-RADS 2 - BENIGN FINDING(S) Ordered By: URI GAGNON Interpreted By: Roger Steel DO, 07/04/2023 3:47 PM Narrative 07/04/2023 3:49 PM CDT Examination: BILATERAL SCREENING MAMMOGRAM Exam Date: 07/04/2023 1:41 PM Clinical Indication: 57 years of age female routine screening. No personal or family history of breast cancer. Prior benign right breast biopsy. Comparison: Mammograms dating back to 05/25/2014. Technique: Digital CC and MLO views. Tomosynthesis imaging acquisition. Study read with the assistance of a computer-aided detection system. Tissue density:There are scattered areas of fibroglandular density. Findings: Stable fibroglandular pattern demonstrating asymmetric dense patches bilaterally. Benign-appearing calcifications and axillary lymph nodes. No suspicious masses, malignant appearing calcifications, skin thickening or other abnormalities are present. No findings of concern with computer-assisted software. us Uri Gagnon MD MAMMO Final Result * THINPREP IMAGING PAP REFLEX HPV MRNA E6/E7 (03/10/2014 4:36 PM STOVE FITTER) REFLEX ADDED no [facility] P TO EPIC CONVERSION Comment: THIS TEST WAS PERFORMED AT [facility] [address] [place] [address] 03/10/2014 4:36 PM STOVE FITTER 03/10/2014 4:36 PM STOVE FITTER Narrative [facility] TO EPIC CONVERSION - 03/17/2014 12:44 PM STOVE FITTER This lab was migrated from [facility] and may be missing annotations or result text, please check the Media tab for the most complete results. us Cricket Kennedy MD PATHOLOGY/CYTOLOGY ORDER MARCOS Final Result [facility] TO EPIC CONVERSION from Last 3 Months or Most Recently Relevant to Health Maintenance Insurance Advance Directives Documents on File Type Date Recorded Patient Rn Hedis Expl anation Advance Directives and Living Will 11/01/2014 12:00 AM ADVANCED DIRECTIVES * Full Code (Latest Code Status on File) Date Activated Date Inactivated Comments 02/25/2019 4:04 PM 02/25/2019 7:54 PM Care Teams Portrait Photographer Relationship Specialty Start Date End Date Iesha Gaines PA [address] [place] [id number] PCP - General PHYSICIAN PIGEON FANCIER 04/23/24
[2024-05-27 09:55] VITALS: BP 144/89; PULSE 83; RESP 18; TEMP 36.2; O2SAT 100; BMI 34.9
[2024-05-27] MEDS: LACTATED RINGERS 1,000 ML 150 ML IV CONT (10:08)
--- NOTE | 2024-05-27 10:21 | P.PNAN_ITS ---
Anes - Initial Pre Proc Eval Procedure: Operation Date: 05/27/24 14:00 Proposed Procedures p Esophagogastroduodenoscopy & Colonoscopy - Barrera Amanda MD Date/Time: 05/27/24 10:21 Surgeon: Barrera Amanda MD Pre Op Diagnosis: Abnormal findings on diagnostic imaging of other a Patient Data Age: 58 Gender: F Height: 1.55 m Weight: 84 kg Last Vital Signs Temp 36.2 C L 05/27/24 09:55 Pulse 83 05/27/24 09:55 Resp 18 05/27/24 09:55 BP 144/89 H 05/27/24 09:55 Pulse Ox 100 05/27/24 09:55 O2 Del Method Room Air 05/27/24 09:55 Allergies Allergy/AdvReac Type Severity Reaction Status Date / Time cephalexin (From Keflex) AdvReac Unknown Gastrointestinal Verified 05/27/24 09:54 Upset sunflower products AdvReac Severe Loss of Uncoded 05/27/24 09:54 Consciousness Home Medications ?Medication ?Instructions ?Recorded ?Confirmed ?Type ferrous sulfate 142 mg (45 mg 142 mg PO .WEEKLY 01/11/22 05/27/24 History iron) tablet,extended release (Slow Fe) loratadine 10 mg tablet (Claritin) 10 mg PO DAILY 01/11/22 05/27/24 History vitamin E mixed 400 unit capsule 400 unit PO DAILY 01/11/22 05/27/24 History amitriptyline 25 mg tablet 25 mg PO QHS 04/23/23 05/27/24 History albuterol sulfate 90 mcg/actuation 1 puff inhalation PRN PRN wheezes 07/22/23 05/24/24 Rx aerosol inhaler (Ventolin HFA) #6.7 grams cyanocobalamin (vitamin B-12) 1,000 mcg PO DAILY 10/24/23 05/27/24 History 2,000 mcg tablet famotidine 10 mg tablet (Pepcid AC) 20 mg PO DAILY 10/24/23 05/27/24 History ketotifen fumarate 0.025 % (0.035 1 drp EACH EYE QAM 10/24/23 05/27/24 History %) eye drops (Zaditor) rhubarb root extract 4 mg tablet 4 mg PO DAILY 10/24/23 05/27/24 History (Estroven Complete Menopause Relief) cholecalciferol (vitamin D3) 50 1,000 unit PO DAILY 01/23/24 05/27/24 History mcg (2,000 unit) capsule lisinopril 10 1 tablet PO DAILY #90 tabs 01/23/24 05/27/24 Rx mg-hydrochlorothiazide 12.5 mg tablet mineral oil 1 ea miscellaneous DAILY PRN 01/23/24 05/24/24 History constipation meloxicam 7.5 mg tablet 7.5 - 15 mg (1 - 2 x 7.5 mg) PO 03/09/24 05/27/24 Rx DAILY #90 tabs cyclobenzaprine 5 mg tablet 2.5 - 10 mg (0.5 - 2 x 5 mg) PO 04/07/24 05/24/24 Rx QHS #15 tabs propylene glycol 0.6 % eye drops 1 drp EACH EYE DAILY PRN allergy 05/24/24 05/24/24 History (Systane Balance) symptoms Patient hx anesthesia problems: none Family hx anesthesia problems: none Results Review: All pre-operative results and documents have been reviewed as part of the pre- operative evaluation. [facility] Past Medical History Medical History Constipation Cholelithiasis RLQ abdominal pain Dysphagia Hyperglycemia Tinnitus Urolithiasis (~05/2022) Large stone, scheduled for lithotripsy but resolved before procedure Arthritis Left ankle, bilateral knees Endometriosis GERD (gastroesophageal reflux disease) Syncope (~05/2022) With pyelonephritis Pyelonephritis of right kidney Interstitial cystitis Takes amitriptyline Hypertension Iron deficiency anemia Pyelonephritis (~05/2022) Fracture of one rib, left side, initial encounter for closed fracture Asthma Exercise induced. Endometrial cyst of ovary Carpal tunnel syndrome of right wrist Carpal tunnel syndrome of left wrist HTN (hypertension) Surgical History Surgical History History of ankle surgery Fused left ankle. History of partial knee replacement Right. S/P foot surgery, left H/O right knee surgery Family History Family History Mother Arthritis Father Pacemaker Social History Social History Social History: 04/07/24 Somewhat confident with medical forms Surrogate medical decision maker: Michael Mishra, spouse. Code status: Full code. Smoking status: Never smoker Alcohol intake: current Alcohol use details: 1 per month Substance use: never Substance use type: does not use Other substance usage details: alcohol only for special occasions Do You Feel Safe in your Home?: Yes Lack of Transportation: No Lack of Food: Never True Current Housing: I Have Housing Concerned About Future Housing: No Difficulty Paying Gas/Electric Bills: No Difficulty Paying for Meds: No Currently Unemployed: No Education: Bachelor's Degree Difficulty w/ Childcare or Family Care: No Living arrangements: with family Additional living arrangements comments: Lives with spouse in [place]. Occupation/Education: other Additional occupation/education comments: House . Spiritual care concerns: No Anes - Eval Final PreProcedure Day of Procedure 05/27/24 10:21 Patient weight: obese Heart: regular rate and rhythm Lungs: clear to auscultation Airway: Mallampati scale class II Neurological: alert and oriented Last oral intake: >/= 8 hours ASA classification: III Emergent: no Anesthetic plan: proceed Anesthesia type and monitoring: general GIVS and standard monitoring Results Review: All pre-operative results and documents have been reviewed as part of the pre- operative evaluation. Informed Consent: The patient's anesthetic plan and its attendant risks and benefits were discussed with the patient/family/POA. Questions were solicited and answers provided to the satisfaction of the patient/family/POA.
--- NOTE | 2024-05-27 10:56 | WPDHPUPDATE1 ---
History and Physical Update Update Date/Time: 05/27/24 10:56 History and Physical has been reviewed, including an updated exam of the patient. There are NO changes in the patient's condition. Risks, benefits, and alternatives have been discussed and questions answered. Patient agrees to proceed with procedure.
[2024-05-27] MEDS: BENZOCAINE (*SP) 60 ML SPRAY CAN (HURRICAINE) 1 SPRAY MUCOUS MEM (11:02)
--- NOTE | 2024-05-27 11:18 | SUR.OPER ---
EGD end time: 111, Colonoscopy start time: 1115
[2024-05-27 11:29] VITALS: BP 92/53; PULSE 87; RESP 17; O2SAT 99
[2024-05-27 11:39] VITALS: BP 97/47; PULSE 77; RESP 19; O2SAT 99
[2024-05-27 11:49] VITALS: BP 135/84; PULSE 83; RESP 19; O2SAT 100
== END 2024-05-27 12:22 | disposition home or self-care (01) ==
PROVIDERS: PCP Physician Assistant Medical; Referring Provider Nurse Practitioner Family; Visit Provider Internal Medicine Gastroenterology
PROC: 0DJ08ZZ Inspection of Upper Intestinal Tract, Via Natural or Artificial Opening Endoscopic (ICD-10-PCS; CPT 45378; principal; 2024-05-27 14:00)
DX: K22.2 Esophageal obstruction (principal); K21.00 Gastro-esophageal reflux disease with esophagitis, without bleeding; K57.30 Diverticulosis of large intestine without perforation or abscess without bleeding; I10 Essential (primary) hypertension; J45.909 Unspecified asthma, uncomplicated; R73.9 Hyperglycemia, unspecified; M19.072 Primary osteoarthritis, left ankle and foot; M17.0 Bilateral primary osteoarthritis of knee; D50.9 Iron deficiency anemia, unspecified; N80.9 Endometriosis, unspecified; G56.03 Carpal tunnel syndrome, bilateral upper limbs; E66.9 Obesity, unspecified; Z68.35 Body mass index [BMI] 35.0-35.9, adult; Z79.51 Long term (current) use of inhaled steroids; Z98.890 Other specified postprocedural states
CPT/HCPCS: 43239; 43249; 45378; 88305; J2003; J2704; J7120

== ENCOUNTER 2024-06-22 07:45 | Outpatient (CLI) | payer BC, SELFPAY ==
--- NOTE | ~2024-06-22 | NM_ITS ---
History: Abdominal pain Interpretation: Following intravenous administration of 5.0 mCi. of technetium 99 Choletec, serial im ages obtained reveal prompt concentration by the liver which is normal in size and without any focal abnormalities. There is normal excretion from the liver. The gallbladder and small bowel are visual ized by 60 minutes. At 60 minutes the patient intravenously received 0.02 mcg/kg of CCK and 30 cc normal saline delivered by palm over 60 minutes. The patient was imaged for approximately the next 40 minutes. Regions of in terest were drawn about the gallbladder and background and gallbladder ejection fraction calculated. The gallbladder ejection fraction measures 80%. ( GBEF will measure > or = 49%, in 95% of normals. GBEF will measure > or= 38% in 99% of normals ) Impression: Normal hepatobiliary scan. No evidence of cystic duct or common bile duct obstruction. This effecti vely excludes acute cholecystitis. Normal gallbladder ejection fraction of 80%. Sreekanth et al.,Sincalide-Stimulated Cholescintigraphy: A Multicenter Investigation to Determine Opti mal Infusion Methodology and Gallbladder Ejection Fraction Normal Values. JNM. Vol 51. No.2. Mar 2009 . Reviewed, dictated and finalized at location . Impression: Normal hepatobiliary scan. No evidence of cystic duct or common bile duct obst ruction. This effectively excludes acute cholecystitis. Normal gallbladder ejection fraction of 80%. Sreekanth et al.,Sincalide-Stimulated Cholescintigraphy: A Multicenter Investiga tion to Determine Optimal Infusion Methodology and Gallbladder Ejection Fractio n Normal Values. JNM. Vol 51. No.2. Mar 2009.
--- OUTSIDE RECORDS SUMMARY | 2024-06-22 07:48 | XMS_ITS | Referral Summary ---
Author Organization [facility] Address [address] [place] [address] Care Team Providers Care Lead Caster Helper Name Role Phone Uri Coello MD Primary Care Provider [phone] Kwame Woodall MD Unavailable [phone] Allergies Active Allergy Reactions Criticality Noted Date Comments Cephalexin Other (See comments) Low 11/10/2020 Severe abdominal pain [place] Oil Angioedema High 02/11/2019 Medications VENTOLIN HFA [...] (06/06/2020): Added automatically from request for surgery [id number] Osteoarthritis of knee 11/30/2019 Pain of foot [...] on file Legal Sex Female 11:01 AM RAG COLLECTOR Gender Identity Female 04/13/2020 10:01 AM RAG COLLECTOR Sexual Orientation Not on file Last Filed [...] on file Medical Devices Implanted Type Area Deputy Coroner Investigator Device Identifier Shelf Expiration Date Model / Serial / Lot Screws Left: Foot [employer] 6191-1-010 Simplex P Radiopaque Full Dose Cement Bone Sterile - [id number] Implanted:Qty: 1 on 06/21/2020 by Ishmael Wellington MD at [facility] Right: Knee [employer] 11/09/2021 6191-1-01 0 / / [id number] Description:All implant time s are approximate [employer] 458907 Cmpnt Fem 2 Std Knee Condyle Right Medial Left Lat - [id number] Implanted:Qty: 1 on 06/21/2020 by Ray Orr MD at [facility] Right: Knee [employer] [id number] 04/27/2024 [id number] / / [id number] Description:ALL IMPLANT TIME S ARE APPROXIMATE [employer] 089886 Bsplt Tibial 2 Knee Right Medial Left Lat Mck System - [id number] Implanted:Qty: 1 on 06/21/2020 by Ray Orr MD at [facility] Right: Knee [employer] [id number] 01/02/2024 637460 / / [id number] Description:ALL IMPLANT TIME S ARE APPROXIMATE [employer] 100617-7 Insert Tibial 2 9mm Knee Unicompartmental Onlay Khris X3 - [id number] Implanted:Qty: 1 on 06/21/2020 by Ray Orr MD at [facility] Right: Knee [employer] [id number] 02/14/2021 215832-9 / / [id number] Description:ALL IMPLANT TIME S ARE APPROXIMATE [employer] Cmpnt Fem 2 Knee Left Medial Right Lat Mck System 963646 - [id number] Implanted:Qty: 1 on 11/18/2023 at [facility] Left: Knee [employer] 08/29/2026 [id number] / / [id number] [employer] Bsplt Tibial 2 Knee Left Medial Right Lat Mck System 745473 - [id number] Implanted:Qty: 1 on 11/18/2023 at [facility] Left: Knee [employer] 01/09/2026 173659 / / [id number] [employer] Smartset Medium Viscosity Cement 40gm Bone Sterile 3122-040 - [id number] Implanted:Qty: 1 on 11/18/2023 at [facility] Left: Knee [employer] 03/12/2025 3122-040 / / [id number] [employer] Insert Mck Tibial X3 Onlay Size 2 X 8mm 936689-2-D - [id number] Implanted:Qty: 1 on 11/18/2023 at [facility] Left: Knee [employer] 01/22/2027 179734-0- E / / [id number] Explanted Type Area Deputy Coroner Investigator Device Identifier Shelf Expiration Date Model / Serial / Lot [employer] 618727 4mm 140mm Knee Straight Pin Fixation Sterile - [id number] Explanted:Qty: 1 on 06/21/2020 by Ray Orr MD at [facility] Right: Knee [employer] [id number] 09/14/2024 186344 / / [id number] Description:BONE PINS FOR TE MPORARY FIXATION, NOT IMPLANTED [employer] 228572 4mm 110mm Pin Fixation Sterile - [id number] Explanted:Qty: 1 on 06/21/2020 by Ray Orr MD at [facility] Right: Knee [employer] [id number] 09/14/2024 699507 / / [id number] Description:BONE PINS FOR TE MPORARY FIXATION, NOT IMPLANTED Insurance [facility] ACCESS CHOICE ANTHEM ACCESS CHOICE Gear6 ACCESS CHOICE ANTHEM ACCESS CHOICE Care Teams Lead Caster Helper Relationship Specialty Start Date End Date Uri Coello MD [address] [place] [address] PCP - General 11/26/19 Kwame Woodall MD [facility] [place] [address] Consulting Physician Rheumatology 09/27/20
--- OUTSIDE RECORDS SUMMARY | 2024-06-22 07:48 | XMS_ITS | Clinical Summary ---
Author Organization [facility] Address [address] [place] [address] Care Team Providers Care Pyrometer Mechanic Name Role Phone Uri Coello MD Primary Care Provider [phone] Kwame Woodall MD Unavailable [phone] Allergies Active Allergy Reactions Criticality Noted Date Comments Cephalexin Other (See comments) Low 11/10/2020 Severe abdominal pain [place] Oil Angioedema High 02/11/2019 Medications VENTOLIN HFA [...] (06/06/2020): Added automatically from request for surgery [id number] Osteoarthritis of knee 11/30/2019 Pain of foot [...] on file Legal Sex Female 11:01 AM OPERATING COST CLERK Gender Identity Female 04/13/2020 10:01 AM OPERATING COST CLERK Sexual Orientation Not on file Obstetrics History [...] this topic Medical Devices Implanted Type Area Embroidery Finisher Device Identifier Shelf Expiration Date Model / Serial / Lot Screws Left: Foot [employer] 6191-1-010 Simplex P Radiopaque Full Dose Cement Bone Sterile - [id number] Implanted:Qty: 1 on 06/21/2020 by Ishmael Wellington MD at [facility] Right: Knee [employer] 11/09/2021 6191-1-01 0 / / [id number] Description:All implant time s are approximate [employer] 282344 Cmpnt Fem 2 Std Knee Condyle Right Medial Left Lat - [id number] Implanted:Qty: 1 on 06/21/2020 by Ray Orr MD at [facility] Right: Knee [employer] [id number] 04/27/2024 717267 / / [id number]-[id number] Description:ALL IMPLANT TIME S ARE APPROXIMATE [employer] 597515 Bsplt Tibial 2 Knee Right Medial Left Lat Mck System - [id number] Implanted:Qty: 1 on 06/21/2020 by Ray Orr MD at [facility] Right: Knee [employer] [id number] 01/02/2024 016930 / / [id number] Description:ALL IMPLANT TIME S ARE APPROXIMATE [employer] 756848-7 Insert Tibial 2 9mm Knee Unicompartmental Onlay Khris X3 - [id number] Implanted:Qty: 1 on 06/21/2020 by Ray Orr MD at [facility] Right: Knee [employer] [id number] 02/14/2021 107951-1 / / [id number] Description:ALL IMPLANT TIME S ARE APPROXIMATE [employer] Cmpnt Fem 2 Knee Left Medial Right Lat Mck System 299490 - [id number] Implanted:Qty: 1 on 11/18/2023 at [facility] Left: Knee [employer] 08/29/2026 565316 / / [id number] [employer] Bsplt Tibial 2 Knee Left Medial Right Lat Mck System 683367 - [id number] Implanted:Qty: 1 on 11/18/2023 at [facility] Left: Knee [employer] 01/09/2026 463171 / / [id number] [employer] Smartset Medium Viscosity Cement 40gm Bone Sterile 3122-040 - [id number] Implanted:Qty: 1 on 11/18/2023 at [facility] Left: Knee [employer] 03/12/2025 3122-040 / / [id number] [employer] Insert Mck Tibial X3 Onlay Size 2 X 8mm 269346-4-V - [id number] Implanted:Qty: 1 on 11/18/2023 at [facility] Left: Knee [employer] 01/22/2027 049204-5- E / / [id number] Explanted Type Area Embroidery Finisher Device Identifier Shelf Expiration Date Model / Serial / Lot [employer] 240432 4mm 140mm Knee Straight Pin Fixation Sterile - [id number] Explanted:Qty: 1 on 06/21/2020 by Ray Orr MD at [facility] Right: Knee [employer] [id number] 09/14/2024 772045 / / [id number] Description:BONE PINS FOR TE MPORARY FIXATION, NOT IMPLANTED [employer] 935240 4mm 110mm Pin Fixation Sterile - [id number] Explanted:Qty: 1 on 06/21/2020 by Ray Orr MD at [facility] Right: Knee [employer] [id number] 09/14/2024 031785 / / [id number] Description:BONE PINS FOR TE MPORARY FIXATION, NOT IMPLANTED Insurance [facility] ACCESS CHOICE ANTHEM ACCESS CHOICE ANTHEM ACCESS CHOICE ANTHEM ACCESS CHOICE Care Teams Pyrometer Mechanic Relationship Specialty Start Date End Date Uri Coello MD [facility] [place] [address] PCP - General 11/26/19 Kwame Woodall MD [facility] [place] [address] Consulting Physician Rheumatology 09/27/20
--- OUTSIDE RECORDS SUMMARY | 2024-06-22 07:48 | XMS_ITS | Clinical Summary ---
Author Organization [facility] Address [address] [place] [address] Care Team Providers Care Account Manager Sales Representative Name Role Phone Iesha Gaines Primary Care Provider [phone] Allergies Active Allergy Reactions Criticality Noted Date Comments [place] Oil Angioedema High 02/11/2019 Medications albuterol sulfate [...] - 04/23/2024 11:59 PM CDT Hospital [place] [address] [place] [address] Iesha Gaines PA Discharge Disposition: [...] Comments Blood Pressure 151/89 03/10/2019 8:28 AM RADON INSPECTOR Pulse 74 03/10/2019 8:28 AM RADON INSPECTOR Temperature 36.4 C (97.5 F) 03/10/2019 8:28 AM RADON INSPECTOR Respiratory Rate 18 02/25/2019 5:25 PM RADON INSPECTOR Oxygen Saturation 99% 03/10/2019 8:28 AM RADON INSPECTOR Inhaled Oxygen Concentration - - Weight 93.4 kg (205 lb 14.6 oz) 020 11:31 AM RADON INSPECTOR Height 154.9 cm (5' 1 ) 02/11/2019 4:06 PM RADON INSPECTOR Body Mass Index 38.91 02/11/2019 4:06 PM RADON INSPECTOR Plan of Treatment Upcoming Encounters Date Type Department Care Team (Late st Contact Info) Description 07/07/2024 11:15 AM CDT Appointment [facility] [address] [place] [address] Uri Gagnon MD On license of [facility] [place], [place] [id number] Health Maintenance Due Date Last Done Comments [...] this topic Medical Devices Implanted Type Area Dietary Assistant Device Identifier Shelf Expiration Date Model / [...] HPV MRNA E6/E7 Routine 03/10/2014 4:36 PM RADON INSPECTOR from Last 3 Months or Most Recently Relevant to Health Maintenance Results * CT ABD+PEL WO CON (04/23/2024 8:55 AM CDT) Anatomical Region Laterality Modality Abdomen Computed Tomogra phy 04/26/2024 1:44 AM CDT Impressions 04/26/2024 1:51 AM CDT Impression: 1. There is no free air or free fluid. No abdominal or pelvic mass. 2. Segments of under distention of the colon with ojfv-ib-ojwfalnv stool retention and diverticula in the distal [...] 1:44 AM Narrative 04/26/2024 1:51 AM CDT [facility] [address] [facility] [place] [address] CT abdomen and pelvis without contrast: 04/26/2024 [...] distention of the redundant right colon and kzzc-mv-hbvuoqbo stool retention throughout the colon. There are uncomplicated diverticula in the distal colon. The fat planes around the colon are unremarkable. If the patient has still unexplained right lower quadrant pain would consider GI consultation concerning need for evaluation of the colon including colonoscopy. In the abdominal wall there is no mass. The osseous structures show degenerative changes of lnvn-cj-tpkcwocd degree in the spine including lower facet disease. In the bony pelvis no acute abnormalities. Procedure Note Gordo Romero MD - 04/26/2024 [facility] [address] [facility] [place] [address] CT abdomen and pelvis without contrast: 04/26/2024 [...] under distention of theredundant right colon and gddx-fj-baqrgjbd stool retention throughout thecolon. There are uncomplicated diverticula in the distal colon. The fatplanes around the colon are unremarkable. If the patient has still unexplained right lower quadrant pain wouldconsider GI consultation concerning need for evaluation of the colonincluding colonoscopy. In the abdominal wall there is no mass. The osseous structures show degenerative changes of tlry-gc-zwcplxhdfchnlv in the spine including lower facet disease. In the bony pelvis noacute abnormalities. Impression: 1. There is no free air or free fluid. No abdominal or pelvic mass. 2. Segments of under distention of the colon with edgp-li-erqibhpn stoolretention and diverticula in the distal colon. [...] Romero MD, 04/26/2024 1:[address] [place] CT Final Result * MG SCREENING W [...] REFLEX HPV MRNA E6/E7 (03/10/2014 4:36 PM RADON INSPECTOR) REFLEX ADDED no [facility] P TO EPIC CONVERSION Comment: THIS TEST WAS PERFORMED AT [facility] [address] [place] [address] 03/10/2014 4:36 PM RADON INSPECTOR 03/10/2014 4:36 PM RADON INSPECTOR Narrative [facility] TO EPIC CONVERSION - 03/17/2014 12:44 PM RADON INSPECTOR This lab was migrated from [facility] and may be missing annotations or result text, please check the Media tab for the most complete results. us Cricket Kennedy MD PATHOLOGY/CYTOLOGY ORDER MARCOS Final Result [facility] TO EPIC CONVERSION from Last 3 Months or Most Recently Relevant to Health Maintenance Insurance Advance Directives Documents on File Type Date Recorded Patient Principal Cyber Engineer Expl anation Advance Directives and Living Will 11/01/2014 12:00 AM ADVANCED DIRECTIVES * Full Code (Latest Code Status on File) Date Activated Date Inactivated Comments 02/25/2019 4:04 PM 02/25/2019 7:54 PM Care Teams Account Manager Sales Representative Relationship Specialty Start Date End Date Iesha Gaines PA [address] [place] [address] PCP - General PHYSICIAN FOUNDER AND CHIEF EXECUTIVE OFFICER 04/23/24
--- OUTSIDE RECORDS SUMMARY | 2024-06-22 07:48 | XMS_ITS | Encounter Summary ---
Author Organization [facility] Address [address] [place] [address] Care Team Providers Care Armor Reconnaissance Vehicle Driver Name Role Phone None, Provider Primary Care Provider Darrina Uri Blum MD Primary Care Provider Alida Gaines Unavailable Alida Gaines Primary Care Provider Encounter Details Date Type Department Care Team (Late st Contact Info) Description 02/11/[address] [facility] [address] [place] [address] Lauren Crawford MD [address] [address] Social History Tobacco Use Types [...] [facility] [address] [place] [address] Uri Coello MD [facility] [place] [address] documented as of this encounter Visit Diagnoses Not on filedocumented in this encounter Care Teams Armor Reconnaissance Vehicle Driver Relationship Specialty Start Date End Date None, Provider, PCP - General 02/11/19 03/09/19 Uri Coello MD [address] [place] [address] PCP - General INTERNAL MEDICINE 03/10/19 04/22/24 Alida Gaines PA [address] [place] [address] PCP - General PHYSICIAN INSTRUCTIONAL WRITER 04/23/24 Ailda Gaines PA [address] [place] [address] PHYSICIAN INSTRUCTIONAL WRITER 04/23/24 04/23/24 documented as of this encounter
--- OUTSIDE RECORDS SUMMARY | 2024-06-22 07:49 | XMS_ITS ---
Author Organization [facility] Address [address] [place], [place] [address] Care Team Providers Care Pad Machine Operator Name Role Phone CALOS TRENT Unavailable [phone] Uri Coello Unavailable Unavailable Allergies Allergen (clinical [...] Medicationergocalciferol 1.25 MG Oral Capsule *Reorder from [employer] for eRx and Interaction Alerts* 1 Active ferrous sulfate 325 MG Oral Tablet ORAL ferrous sulfate 325 MG Oral TabletOriginal Medicationferrous sulfate 325 MG Oral Tablet *Reorder from [employer] for eRx and Interaction Alerts* 1 Active folic acid 0.4 MG / vitamin B12 2.5 MG Disintegrating Oral Tablet ORAL folic acid 0.4 MG / vitamin B12 2.5 MG Disintegrating Oral TabletOriginal Medicationfolic acid 0.4 MG / vitamin B12 2.5 MG Disintegrating Oral Tablet *Reorder from [employer] for eRx and Interaction Alerts* 1 Active loratadine 10 MG Oral Tablet [Claritin] ORAL loratadine 10 MG Oral Tablet [Claritin]Original Medicationloratadine 10 MG Oral Tablet [Claritin] *Reorder from [employer] for eRx and Interaction Alerts* 1 Active vitamin E 450 MG Oral Capsule ORAL vitamin E 450 MG Oral CapsuleOriginal Medicationvitamin E 450 MG Oral Capsule *Reorder from [employer] for eRx and Interaction Alerts* 1 Active Vital Signs Height 61.00 in 08/13/2023 Weight 250 lbs 08/13/2023 BMI 47.23 kg/m2 08/13/2023 Height-cm 154.94 cm 08/13/2023 Weight-kg 113.4 kg 08/13/2023 Encounters Encounter Location Date Provider Diagnosis [facility] [address] [place], [place] [id number] 08/13/2023 CALOS TRENT Acquired keratoderma L85.1 ; [...] health 3. Script provided for orthotics from [facility] 08/13/2023 Corns and callosities (ICD-10 - L84) [...] health 3. Script provided for orthotics from [facility] Next Appt Details Follow Up: prn, Reason: want s to see how she does with new inserts Progress Notes * ANA OSULLIVAN RDOB: [birth year] (58 yo F)Acc No.[id number]:08/13/2023 Patient: ANA MOSS Provider: Dante Trent DPM :1965 A ge:58 Y S ex:Female Date:08/13/2023 Address:[address] [place], [place] [id number] Subjective: * Chief Complaints: * 1 . Would like custom orthotics. 2. CUSTOM ORTHO. 3. Patient complains of a painful callus. * HPI: H PI: New Complaint E stablished patient presents with a new complaint. P atient complains of an issue to needing another prescription for orthotics to take to [facility]. Patient states her problem is unchanged. P atient denies any injury. M A:SS. * ROS: G eneral / Constitutional: Patient denies c hills, fatigue, fever. C ardiovascular: Patient denies h air loss on leg, chest pain. M usculoskeletal: Patient complains of a rthritis, joint stiffness. P eripheral Vascular: Patient denies c old extremities, ulceration of feet. P odiatric: Patient complains of d ifficulty walking, foot pain, ball of foot pain. S kin: Patient complains of c alluses and corns, dry skin. N eurologic: Patient denies B urning/Tingling, Numbness. * Medical History: M edical History Verified. [...] Medicationergocalciferol 1.25 MG Oral Capsule *Reorder from [facility] for eRx and Interaction Alerts*, Taking ferrous sulfate 325 MG Oral Tablet ORAL , Notes to Pharmacist: ferrous sulfate 325 MG Oral TabletOriginal Medicationferrous sulfate 325 MG Oral Tablet *Reorder from [facility] for eRx and Interaction Alerts*, Taking folic acid 0.4 MG / vitamin B12 2.5 MG Disintegrating Oral Tablet ORAL , Notes to Pharmacist: folic acid 0.4 MG / vitamin B12 2.5 MG Disintegrating Oral TabletOriginal Medicationfolic acid 0.4 MG / vitamin B12 2.5 MG Disintegrating Oral Tablet *Reorder from [facility] for eRx and Interaction Alerts*, Taking loratadine 10 MG Oral Tablet [Claritin] ORAL , Notes to Pharmacist: loratadine 10 MG Oral Tablet [Claritin]Original Medicationloratadine 10 MG Oral Tablet [Claritin] *Reorder from [facility] for eRx and Interaction Alerts*, Taking vitamin E 450 MG Oral Capsule ORAL , Notes to Pharmacist: vitamin E 450 MG Oral CapsuleOriginal Medicationvitamin E 450 MG Oral Capsule *Reorder from [facility] for eRx and Interaction Alerts*, Medication List [...] T here is an antalgic gait noted. N eurologic: Tinel's sign: n egative. Gross sensation G ross sensation is intact to light touch.. V ascular: Dorsalis pedis pulse: 2 /4, bilateral. Posterior tibial pulse: 2 /4, bilaterally. Capillary refill: l ess than 3 seconds. D ermatologic: Skin findings: S kin is warm, dry, supple with no breaks in the skin.. Hyperkeratotic Skin Lesion T here is evidence of hyperkeratotic skin lesions present on the, plantar aspect of the 5th metatarsal head left foot. Assessment: * Assessment: 1. A cquired keratoderma - L85.1 (Primary) 2 . C orns and callosities - L84 3. M etatarsalgia of right foot - M77.41 4 . M etatarsalgia of left foot - M77.42 5 . P osterior tibial tendinitis of right lower extremity - M76.821 6 . P osterior tibial tendinitis of left lower extremity - M76.822 7. 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 Primary osteoarthritis, left ankle and foot - M19.072 9 . D ifficulty in walking involving ankle and foot joint - R26.2 Plan: * Treatment: * Immunizations: Immunization record has been reviewed and updated. * Follow Up: p rn (Reason: wants to see how she does with new inserts) * Billing Information: * Visit Code: 93144 Office Visit, Est Pt., Level 3. * Procedure Codes: * Sign off status: Completed true * Provider: Dante Trent DPM Date: 0 08/13/2023 Generated for Akhil duenas/Bradley/Emile on: 0 06/22/2024 07:48 AM CDT History and Physical Notes * HPI (History of Present Illness) Category Sub-Category Detail Notes Category Not es HPI New Complaint Established cecil ent presents with a new complaint. Patient complains of an issue to needing another prescription for orthotics to take to [facility]. Patient states her problem is unchanged. Patient [...]
--- OUTSIDE RECORDS SUMMARY | 2024-06-22 07:49 | XMS_ITS | Patient Health Record ---
Author Organization [facility] Address [address] [place], [place] [id number] Care Team Providers Care Custodial Manager Name Role Phone CALOS OVERTON Unavailable [phone] Uri Coello Unavailable Unavailable Allergies Allergen (clinical [...] Medicationergocalciferol 1.25 MG Oral Capsule *Reorder from [employer] for eRx and Interaction Alerts* 1 Active ferrous sulfate 325 MG Oral Tablet ORAL ferrous sulfate 325 MG Oral TabletOriginal Medicationferrous sulfate 325 MG Oral Tablet *Reorder from [employer] for eRx and Interaction Alerts* 1 Active folic acid 0.4 MG / vitamin B12 2.5 MG Disintegrating Oral Tablet ORAL folic acid 0.4 MG / vitamin B12 2.5 MG Disintegrating Oral TabletOriginal Medicationfolic acid 0.4 MG / vitamin B12 2.5 MG Disintegrating Oral Tablet *Reorder from [employer] for eRx and Interaction Alerts* 1 Active loratadine 10 MG Oral Tablet [Claritin] ORAL loratadine 10 MG Oral Tablet [Claritin]Original Medicationloratadine 10 MG Oral Tablet [Claritin] *Reorder from [employer] for eRx and Interaction Alerts* 1 Active vitamin E 450 MG Oral Capsule ORAL vitamin E 450 MG Oral CapsuleOriginal Medicationvitamin E 450 MG Oral Capsule *Reorder from [employer] for eRx and Interaction Alerts* Active Vital Signs Height-cm 154.94 cm 08/13/2023 Weight-kg 113.4 kg 08/13/2023 Height 61.00 in 08/13/2023 Weight 250 lbs 08/13/2023 BMI 47.23 kg/m2 08/13/2023 Encounters Encounter Location Date Provider Diagnosis [facility] [address] [place], [place] [id number] 08/13/2023 CALOS OVERTON Acquired keratoderma L85.1 ; [...] Insured Coverage Start Date Coverage End Date [facility] ([facility]) ATTN CLAIMS [address] [place] [address] [id number] SARAH OSULLIVAN Spouse - patient is the spouse of the insured
== END 2024-06-22 07:46 | disposition home or self-care (01) ==
PROVIDERS: PCP Physician Assistant Medical; Visit Provider Internal Medicine Gastroenterology
DX: R10.31 Right lower quadrant pain (principal); K80.20 Calculus of gallbladder without cholecystitis without obstruction
CPT/HCPCS: 78227; A9537; J2805